=== PATIENT | male | born 1930 | race Hispanic/Latino ===

== ENCOUNTER 2016-10-06 10:37 | Inpatient (IN) | payer MEDICARE, OTHER ==
[2016-10-06 10:42] VITALS: BMI 29.5
--- NOTE | 2016-10-06 11:17 | ED PDOC ---
HPI: Hypertension/Hypotension Time Seen by Provider: 10/06/16 10:40 Chief Complaint (Nursing): Chest Pain History Per: Patient, Family History/Exam Limitations: no limitations Onset/Duration Of Symptoms: Unknown Associated Symptoms: denies: Chest Pain Quality Of Symptoms: denies: Rapid Heart Rate Severity: None Exacerbating Factor(s): Pos: None Additional Complaint(s): Patient is a 85 year old male presents to ED with daughter for rapid heart beat. As per daughter, visiting nurse came today and found heart beat to be in the 140's. Patient denies any chest pain, palpations, SOB or nausea. States he has no history of cardiac disease, only notes HTN with chronic foot swelling. Past Medical History Reviewed: Historical Data, Nursing Documentation, Vital Signs Vital Signs: Last Vital Signs Temp 98 F 10/06/16 10:41 Pulse 165 H 10/06/16 11:02 Resp BP 159/103 H 10/06/16 10:41 Pulse Ox 97 10/06/16 10:41 - Medical History PMH: Fractures, HTN - Surgical History Surgical History: No Surg Hx - Family History Family History: States: No Known Family Hx - Living Arrangements Living Arrangements: With Family - Social History Current smoker - smoking cessation education provided: No Alcohol: None Drugs: Denies - Home Medications Home Medications: Ambulatory Orders Medication Instructions Recorded Allopurinol [Zyloprim] 100 mg PO DAILY 10/06/16 Enalapril Maleate [Vasotec] 5 mg PO DAILY 10/06/16 Furosemide [Lasix] 40 mg PO DAILY 10/06/16 - Allergies Allergies/Adverse Reactions: Allergies Allergy/AdvReac Type Severity Reaction Status Date / Time No Known Allergies Allergy Verified 10/06/16 10:58 Review of Systems ROS Statement: Except As Marked, All Systems Reviewed And Found Negative Constitutional: Negative for: Fever, Chills Cardiovascular: Negative for: Chest Pain, Palpitations, Light Headedness Respiratory: Negative for: Shortness of Breath Gastrointestinal: Negative for: Nausea, Vomiting Physical Exam - Reviewed Nursing Documentation Reviewed: Yes Vital Signs Reviewed: Yes - Physical Exam Appears: Positive for: Non-toxic, No Acute Distress Skin: Positive for: Normal Color, Warm Eye Exam: Positive for: Normal appearance Neck: Positive for: Normal, Painless ROM Cardiovascular/Chest: Positive for: Chest Non Tender, Tachycardia, Irregularly Irregular. Negative for: Murmur Respiratory: Positive for: Normal Breath Sounds. Negative for: Respiratory Distress Gastrointestinal/Abdominal: Positive for: Normal Exam. Negative for: Tenderness Back: Positive for: Normal Inspection Extremity: Positive for: Normal ROM, Swelling (BLE) Neurologic/Psych: Positive for: Alert, Oriented. Negative for: Motor/Sensory Deficits - Laboratory Results Result Diagrams: 10/06/16 12:01 10/06/16 12:01 - ECG ECG: Positive for: Interpreted By Me ECG Rhythm: Positive for: Atrial Fibrillation Interpretation Of Abn EKG: (+) RVR Rate: 161 O2 Sat by Pulse Oximetry: 97 (RA) Pulse Ox Interpretation: Normal Medical Decision Making Medical Decision Making: Time: 1110 Initial impression: New onset AFib, rule out MS and CHF Initial plan: -- BNP -- CMP -- Troponin -- CBC -- CXR -- Cardizem IVP -- Cardiology Consult 14:40 Patient admit to the hospital with cardiology consult as needed for initial onset of atrial fibrillation. 14:45 Dr. Huerta of medical services accepted patient in admission. Provider plans on calling Dr. Santana for a cardiology consult. Dr huerta requested that echocardiogram be ordered 16:[address] Santana a second time for a followup cardiology consult. 17:[address] Santana who advised 0.5 mg of Digoxin and 95 mg of Lovenox. ordered for pt. Scribe Attestation: Documented by Selina Guerin and Broderick Randall, acting as a scribe for Patrica Casanoav MD. Scribe Attestation: All medical record entries made by the Scribe were at my direction and personally dictated by me. I have reviewed the chart and agree that the record accurately reflects my personal performance of the history, physical exam, medical decision making, and the department course for this patient. I have also personally directed, reviewed, and agree with the discharge instructions and disposition. Disposition - Clinical Impression Clinical Impression: Atrial fibrillation, rapid - Patient ED Disposition Is Patient to be Admitted: No Counseled Patient/Family Regarding: Studies Performed, Diagnosis - Disposition Disposition Time: 12:20 Condition: STABLE
--- NOTE | 2016-10-06 12:11 | RAD ---
HISTORY: Atrial fibrillation. COMPARISON: 03/04/2011. TECHNIQUE: Chest PA and lateral FINDINGS: LUNGS: Hyperinflation, manifestations of COPD. No active pulmonary disease. PLEURA: No significant pleural effusion identified. No pneumothorax apparent. CARDIOVASCULAR: Cardiomegaly. No evidence of acute, significant cardiovascular disease. OSSEOUS STRUCTURES: No significant abnormalities. VISUALIZED UPPER ABDOMEN: Normal. OTHER FINDINGS: None. IMPRESSION: No active disease. No significant interval change compared to the prior examination(s).
[2016-10-06 12:23] LABS: BASO # 0.1 K/uL (0.0-0.2); EOS # 0.1 K/uL (0.0-0.7); EOS % 1.2 % (0.0-4.0); HEMATOCRIT 43.7 % (35.0-51.0); LYMPH # 1.6 K/uL (1.0-4.3); LYMPH % 16.4 % (20.0-40.0); MEAN CELL VOLUME 90.9 fl (80.0-94.0); MEAN CORPUSCULAR HEMOGLOBIN 30.2 pg (27.0-31.0); MEAN CORPUSCULAR HGB CONC 33.2 g/dL (33.0-37.0); MEAN PLATELET VOLUME 9.7 fl (7.2-11.7); MONO # 0.7 K/uL (0.0-0.8); MONO % 7.2 % (0.0-10.0); NEUT # 7.5 K/uL (1.8-7.0); NEUT % 74.2 % (50.0-75.0); NRBC % 0.1 % (0.0-0.0); RED CELL DISTRIBUTION WIDTH 14.3 % (11.5-14.5)
[2016-10-06 12:32] LABS: ALB/GLOB RATIO 1.1 (1.0-2.1); ALKALINE PHOSPHATASE 101 U/L (38-126); ALT/SGPT 43 U/L (21-72); AST/SGOT 32 U/L (17-59); BILIRUBIN,TOTAL 0.5 mg/dl (0.2-1.3); BLOOD UREA NITROGEN 18 mg/dl (9-20); CALCIUM 9.5 mg/dL (8.4-10.2); CARBON DIOXIDE 27 mmol/L (22-30); CHLORIDE 100 mmol/L (98-107); GFR AFRICAN-AMERICAN > 60; GLUCOSE,RANDOM 129 mg/dL (75-110); POTASSIUM 4.2 MMOL/L (3.6-5.0); SODIUM 140 mmol/l (132-148); TOTAL PROTEIN 7.7 G/DL (6.3-8.2)
[2016-10-06] MEDS ORDERED: Digoxin 500 mcg/2ml (0.5 mg/2ml) Inj IVP ONE (17:04)
[2016-10-06] MEDS ORDERED: Enoxaparin 100 mg Syringe SC STA (17:05)
[2016-10-06] MEDS ORDERED: Digoxin 500 mcg/2ml (0.5 mg/2ml) Inj ONE (17:07)
[2016-10-06 21:55] LABS: PARTIAL THROMBOPLASTIN TIME 29.2 SECONDS (23.3-32.5)
[2016-10-07] MEDS: Enoxaparin 100 mg Syringe SC SCH ×2 (09:00→21:50)
--- NOTE | 2016-10-07 15:05 | CON ---
DATE: 10/07/2016 He is hospitalized after being sent to the Emergency Room for rapid heartbeat detected by a visiting nurse who came to examine him. At home, the patient is mostly bed and chair bound because of severe osteoarthritis of both knees and has had chronic pedal edema, probably related to prolonged immobility. He gives history of having been on antihypertensive medications and has taken allopurinol for gouty arthritis over a number of years. He is not a smoker. Denies any history of diabetes. Had never suffered a myocardial infarction and denies prior palpitations; indicates that, for the last couple of weeks, he has been uneasy while lying down and has said so to his daughter. Denies actual chest pain and denies actual orthopnea. PHYSICAL EXAMINATION: GENERAL: Shows an elderly man who is now able to lie virtually flat and breathe comfortably at approximately 16 breaths per minute. VITAL SIGNS: He has a heart rate of 110 beats per minute, irregularly irregular and a blood pressure of 126/74 mmHg. NECK: His jugular venous pressure was not elevated. EXTREMITIES: There was pitting edema over both lower extremities which appeared to be chronic in nature with only partial pitting. There was no painful joint at the first metatarsophalangeal joint. Movements of his toes were quite pain free. Pedal pulses could not be palpated. HEART: The first and second heart sounds were distant, but normal. There was a brief apical systolic murmur. No S3 gallop. LUNGS: There were very few basilar rales. ABDOMEN: Soft. Liver and spleen were not palpable. His electrocardiogram showed atrial fibrillation with rapid heart rate. Echocardiogram done today shows a normal-sized left ventricle with preserved left ventricular systolic function, evidence of mitral regurgitation with mild pulmonary hypertension. The pulmonary artery systolic pressure was in the range of 35-36 mmHg. LABORATORY DATA: Noted. IMPRESSION: At this time is atrial fibrillation, newly discovered with preserved left ventricular systolic function with a dilated left atrium indicative of depressed left ventricular compliance; congestive heart failure which is left ventricular diastolic and chronic with stasis dermatitis and chronic pedal edema related to prolonged erect immobility, history of gout. The patient has been started on beta blockade for rate control. He will require Xarelto or Pradaxa for chronic oral anticoagulation. In the meantime, he is on Lovenox at this point. I will follow the patient with you. Wayne Santana MD cc: 23 TT: 10/07/2016 12:19:17 Confirmation # [id number] Dictation # [id number] MTDD
--- NOTE | 2016-10-07 15:05 | CARD ---
APPROVED REPORT EXAM: Two-dimensional and M-mode echocardiogram with Doppler and color Doppler. Other Information Quality : GoodRhythm : Atrial Fibrillation INDICATION Atrial Fibrillation Congestive Heart Failure 2D DIMENSIONS IVSd1.35 (0.7-1.1cm)LVDd3.59 (3.9-5.9cm) LVOT Diameter2.33 (1.8-2.4cm)PWd1.13 (0.7-1.1cm) IVSs1.41 (0.8-1.2cm)LVDs2.17 (2.5-4.0cm) FS (%) 39.4 %PWs1.64 (0.8-1.2cm) LVEF (%)55.0 (>50%) M-Mode DIMENSIONS Left Atrium (MM)5.74 (2.5-4.0cm)IVSd0.99 (0.7-1.1cm) Aortic Root3.64 (2.2-3.7cm)LVDd4.30 (4.0-5.6cm) Aortic Cusp Exc.1.54 (1.5-2.0cm)PWd1.21 (0.7-1.1cm) IVSs1.84 cmFS (%) 34 % LVDs2.83 (2.0-3.8cm)PWs1.29 cm Mitral Valve E/A ratio0.0 TDI E/Lateral E'0.0E/Medial E'0.0 Tricuspid Valve TR Peak [id number] [id number] Peak Gr.27mmHg [id number] LEFT VENTRICLE The left ventricle is normal size. There is mild concentric left ventricular hypertrophy. The left ventricular function is normal. The left ventricular ejection fraction is within the normal range. There is normal LV segmental wall motion. patient is in A Fib RIGHT VENTRICLE The right ventricle is mildly dilated. There is normal right ventricular wall thickness. RV Systolic function is mildly reduced. ATRIA The left atrium is severely dilated. The right atrium is mildly dilated. AORTIC VALVE The aortic valve is not well visualized. No aortic regurgitation is present. There is no aortic valvular stenosis. MITRAL VALVE The mitral valve is not well visualized. There is no mitral valve stenosis. There is no mitral valve regurgitation noted. TRICUSPID VALVE The tricuspid valve is normal in structure There is mild pulmonary hypertension. PULMONIC VALVE The pulmonary valve is normal in structure and function. There is no pulmonic valvular regurgitation. GREAT VESSELS The aortic root is normal in size. The IVC is normal in size and collapses >50% with inspiration. PERICARDIAL EFFUSION The pericardium appears normal. <Conclusion> The left ventricle is normal size. There is mild concentric left ventricular hypertrophy. The left ventricular function is normal. The left ventricular ejection fraction is within the normal range. There is normal LV segmental wall motion. The right ventricle is mildly dilated. RV Systolic function is mildly reduced. There is mild pulmonary hypertension.
--- NOTE | 2016-10-07 20:12 | CP.PCM.HP ---
History of Present Illness - History of Present Illness History of Present Illness: CC: Rapid HR. 85 y/o M, brought to ER [facility] after found by visiting nurse with rapid HR in the 140's, no associated to CP, onset DOA with no relief. Worsening symptom: New onset of A Fib on EKG, severe R-L knee O/A, increased legs edema R>L. Aggravated Factor: Pt is Most of the time bed and chair bound 2nd to knees O/A. Pt denied: Chest pain, SOB, LOC, numbness, headache, n/v/d, abdominal pain, sick contact, recent travel. PMHx: HTN, CHF acute on chronic diastolic, O/A R-L knee, chronic stasis dermatitis, chronic Legs edema, Hemorrhoids. CXR: No active disease. Present on Admission - Present on Admission Any Indicators Present on Admission: No Review of Systems - Constitutional Constitutional: Other (negative) - EENT Eyes: Other (negative) Ears: Other (negative ) Nose/Mouth/Throat: Other (negative) - Cardiovascular Cardiovascular: Irregular Heart Rhythm, Leg Edema, Rapid Heart Rate - Respiratory Respiratory: Other (negative) - Gastrointestinal Gastrointestinal: Loose Stools (negative) - Genitourinary Genitourinary: Other (negative) - Musculoskeletal Musculoskeletal: Arthralgias, Other (knees pain) - Integumentary Integumentary: Swelling (legs) - Neurological Neurological: Other (negative) - Psychiatric Psychiatric: Other (negative) - Endocrine Endocrine: Other (negative) - Hematologic/Lymphatic Hematologic: Other (negative) Past Patient History - Infectious Disease Hx of Infectious Diseases: None - Past Medical History & Family History Pertinent Family History: Unknown. - Past Social History Smoking Status: Former Smoker Alcohol: Other (Hx alcohol abuse.) Drugs: Denies Home Situation {Lives}: With Family - CARDIAC Hx Cardiac Disorders: Yes Hx Congestive Heart Failure: Yes Hx Hypertension: Yes - PULMONARY Hx Respiratory Disorders: No - NEUROLOGICAL Hx Neurological Disorder: No - HEENT Hx HEENT Problems: No - RENAL Hx Chronic Kidney Disease: No - ENDOCRINE/METABOLIC Hx Endocrine Disorders: No - HEMATOLOGICAL/ONCOLOGICAL Hx Blood Disorders: No - INTEGUMENTARY Hx Dermatological Problems: Yes - MUSCULOSKELETAL/RHEUMATOLOGICAL Hx Musculoskeletal Disorders: Yes Hx Falls: No Hx Fractures: Yes Hx Osteoarthritis: Yes (knees) - GASTROINTESTINAL Hx Gastrointestinal Disorders: Yes Hx Hemorrhoids: Yes - GENITOURINARY/GYNECOLOGICAL Hx Genitourinary Disorders: No - PSYCHIATRIC Hx Psychophysiologic Disorder: No Hx Substance Use: No - SURGICAL HISTORY Hx Surgeries: Yes Other/Comment: cyst removal, hemorrhoidectomy - ANESTHESIA Hx Anesthesia: Yes Hx Anesthesia Reactions: No Meds Allergies/Adverse Reactions: Allergies Allergy/AdvReac Type Severity Reaction Status Date / Time No Known Allergies Allergy Verified 10/06/16 10:58 Physical Exam - Constitutional Appears: No Acute Distress - Head Exam Head Exam: NORMAL INSPECTION - Eye Exam Eye Exam: PERRL - ENT Exam ENT Exam: Normal Oropharynx - Neck Exam Neck exam: Positive for: Normal Inspection - Respiratory Exam Respiratory Exam: Decreased Breath Sounds (at bases), Rales (few at bases) - Cardiovascular Exam Cardiovascular Exam: Irregular Rhythm, Systolic Murmur (1/6 Apix) - GI/Abdominal Exam GI & Abdominal Exam: Normal Bowel Sounds, Soft - Extremities Exam Additional comments: Legs edema R>L , chronic venous stasis skin changes. - Back Exam Back exam: NORMAL INSPECTION - Neurological Exam Neurological exam: Alert, Oriented x3 Additional comments: No focal motor sensory deficit. - Psychiatric Exam Psychiatric exam: Normal Mood - Skin Skin Exam: Warm Additional comments: Chronic stasis venous dermatitis lower extremities. Results - Vital Signs Recent Vital Signs: Last Vital Signs Temp 98.3 F 10/07/16 19:49 Pulse 71 10/07/16 19:49 Resp 20 10/07/16 19:49 BP 109/70 10/07/16 19:49 Pulse Ox 95 10/07/16 19:49 reviewed J.P. - Labs Result Diagrams: 10/06/16 12:01 10/06/16 12:01 Labs: Laboratory Results - last 24 hr 10/06/16 10/06/16 21:27 21:27 PT 11.3 H INR 1.09 H APTT 29.2 Troponin I 0.0380 reviewed J.P. - EKG Data EKG comments: reviewed J.P. - Imaging and Cardiology Chest x-ray Status: Report reviewed by me (Aspen) Assessment & Plan (1) New onset atrial fibrillation Status: Acute Priority: High (2) Diastolic CHF, acute on chronic Status: Acute Priority: High (3) HTN (hypertension) Status: Acute - Assessment and Plan (Free Text) Plan: Cardizen, Lasix, Lovenox and rest of Tx, Cardiac consult appreciated. f/u Echo. PT,OT eval. - Date & Time Date: 10/07/16 Time: 10:30
--- NOTE | 2016-10-08 09:11 | CP.PCM.PN ---
Subjective - Date & Time of Evaluation Date of Evaluation: 10/08/16 Time of Evaluation: 09:00 - Subjective Subjective: Breathes much better having diuresed and with slower R A Fib at 80 BPM BP 124/76 mm Hg No rales, no gallop Evidence of VT Rt popliteal vein (Probably due to prolonged immobility) Will start on Xarelto (For A Fib+DVT) May be allowed to return home on present Rx Objective - Vital Signs/Intake and Output Vital Signs (last 24 hours): Temp Pulse Resp BP Pulse Ox 98.5 F 96 H 20 113/71 96 10/08/16 07:36 10/08/16 09:03 10/08/16 07:36 10/08/16 09:03 10/08/16 07:36 Intake and Output: 10/08/16 10/08/16 06:59 18:59 Output Total 500 Balance -500 - Medications Medications: Current Medications Allopurinol (Zyloprim) 100 mg PO DAILY [facility] Last Admin: 10/08/16 09:04 Dose: 100 mg Enalapril Maleate (Vasotec) 5 mg PO DAILY [facility] Last Admin: 10/08/16 09:04 Dose: 5 mg Furosemide (Lasix) 40 mg PO DAILY [facility] Metoprolol Tartrate (Lopressor) 50 mg PO BID [facility] Last Admin: 10/08/16 09:03 Dose: 50 mg Rivaroxaban (Xarelto) 20 mg PO QD5 [facility] PRN Reason: Protocol - Labs Labs: PT 11.3 SECONDS (9.6-11.2) H 10/06/16 21:27 INR 1.09 (0.92-1.08) H 10/06/16 21:27 APTT 29.2 SECONDS (23.3-32.5) 10/06/16 21:27
--- NOTE | 2016-10-08 09:41 | IP.NPCORE ---
Heart Failure Core Measure - Heart Failure Ejection Fraction: 40 % or Greater MIAH Inhibitor Prescribed: Yes Beta-Ezio Prescribed: Metoprolol Succinate AnticoagulationTherapy for Atrial Fibrillation/Atrialflutter: Yes - Follow up Will be discharged to: Home Follow Up Date (must be within 7 days from discharge): 10/15/16 Follow Up Time: 09:00
[2016-10-08 12:20] LABS: BLOOD UREA NITROGEN 17 mg/dl (9-20); CARBON DIOXIDE 29 mmol/L (22-30); CHLORIDE 100 mmol/L (98-107); GFR AFRICAN-AMERICAN > 60; GLUCOSE,RANDOM 166 mg/dL (75-110); POTASSIUM 3.6 MMOL/L (3.6-5.0); SODIUM 141 mmol/l (132-148)
[2016-10-08 12:22] LABS: ALB/GLOB RATIO 1.3 (1.0-2.1); ALT/SGPT 38 U/L (21-72); AST/SGOT 28 U/L (17-59); BILIRUBIN,TOTAL 0.8 mg/dl (0.2-1.3); CALCIUM 8.9 mg/dL (8.4-10.2); TOTAL PROTEIN 6.8 G/DL (6.3-8.2); URIC ACID 11.6 mg/Dl (3.5-8.5)
[2016-10-08 12:23] LABS: ALKALINE PHOSPHATASE 85 U/L (38-126); T4 6.47 ug/dl (5.5-11.0)
[2016-10-08 12:25] LABS: HEMATOCRIT 40.9 % (35.0-51.0); MEAN CELL VOLUME 90.3 fl (80.0-94.0); MEAN CORPUSCULAR HEMOGLOBIN 30.1 pg (27.0-31.0); MEAN CORPUSCULAR HGB CONC 33.4 g/dL (33.0-37.0); RED CELL DISTRIBUTION WIDTH 14.5 % (11.5-14.5); WHITE BLOOD COUNT 8.4 K/uL (4.8-10.8)
--- NOTE | 2016-10-08 12:55 | US ---
PROCEDURE: Bilateral lower extremity venous duplex Doppler. HISTORY: COMPARISON: None available. TECHNIQUE: Bilateral common femoral, superficial femoral, popliteal and posterior tibial veins were evaluated. Flow was assessed with color Doppler, compressibility, assessment of phasic flow and augmentation response. FINDINGS: COMMON FEMORAL VEIN: Right CFV: Unremarkable. Left CFV: Unremarkable. SUPERFICIAL FEMORAL VEIN: Right SFV: Unremarkable. Left SFV: Unremarkable. POPLITEAL VEIN: Right Popliteal: Not fully compressible. Intraluminal thrombus identified. Consistent with deep venous thrombosis. Left Popliteal: Unremarkable. POSTERIOR TIBIAL VEIN: Right PTV: Unremarkable. Left PTV: Unremarkable. OTHER FINDINGS: Bilateral popliteal cysts. Within the popliteal cysts bilaterally, there are multiple calcifications identified. This is of uncertain significance. IMPRESSION: Right popliteal venous thrombosis, isolated. No evidence of left lower extremity deep venous thrombosis. Bilateral popliteal cyst containing multiple calcifications bilaterally, of uncertain significance.
--- NOTE | 2016-10-08 14:18 | CP.PCM.PN ---
Subjective - Date & Time of Evaluation Date of Evaluation: 10/08/16 Time of Evaluation: 10:00 - Subjective Subjective: F/U New onset A Fib Pt with no SOB, no orthopnea, no chest pain, breathing well. Objective - Vital Signs/Intake and Output Vital Signs (last 24 hours): Temp Pulse Resp BP Pulse Ox 98.2 F 102 H 20 126/62 95 10/08/16 12:00 10/08/16 13:11 10/08/16 12:00 10/08/16 12:00 10/08/16 13:11 Intake and Output: 10/08/16 10/08/16 06:59 18:59 Output Total 500 Balance -500 - Medications Medications: Current Medications Allopurinol (Zyloprim) 100 mg PO DAILY [facility] Last Admin: 10/08/16 09:04 Dose: 100 mg Enalapril Maleate (Vasotec) 5 mg PO DAILY [facility] Last Admin: 10/08/16 09:04 Dose: 5 mg Furosemide (Lasix) 40 mg PO DAILY [facility] Metoprolol Tartrate (Lopressor) 50 mg PO BID [facility] Last Admin: 10/08/16 09:03 Dose: 50 mg Rivaroxaban (Xarelto) 20 mg PO QD5 [facility] PRN Reason: Protocol - Labs Labs: 10/07/16 04:00 10/07/16 04:00 PT 11.3 SECONDS (9.6-11.2) H 10/06/16 21:27 INR 1.09 (0.92-1.08) H 10/06/16 21:27 APTT 29.2 SECONDS (23.3-32.5) 10/06/16 21:27 - Constitutional Appears: No Acute Distress - Head Exam Head Exam: NORMAL INSPECTION - Eye Exam Eye Exam: PERRL - ENT Exam ENT Exam: Normal Oropharynx - Neck Exam Neck Exam: Normal Inspection - Respiratory Exam Respiratory Exam: Decreased Breath Sounds (at bases) - Cardiovascular Exam Cardiovascular Exam: Irregular Rhythm, Murmur (systolic 1/6 Apix.) - GI/Abdominal Exam GI & Abdominal Exam: Soft, Normal Bowel Sounds - Extremities Exam Additional comments: Legs edema R > L leg extending to b/l foot, chronic venous stasis skin changes. - Back Exam Back Exam: NORMAL INSPECTION - Neurological Exam Neurological Exam: Alert, Oriented x3 Additional comments: No focal motor sensory deficit. - Psychiatric Exam Psychiatric exam: Normal Mood - Skin Skin Exam: Warm (Chronic stasis venous dermatitis L/E) Assessment and Plan (1) New onset atrial fibrillation Status: Acute (2) Diastolic CHF, acute on chronic Status: Acute (3) HTN (hypertension) Status: Acute - Assessment and Plan (Free Text) Plan: Increased HR up to 140 with PT attempting to get out of bed , Pt returned back to bed and HR went back to normal, Pt was seen by Cardiology recommended to stay in the hospital, continue current Vasotec, Lopressor, Lasix and rest of Tx , monitor HR.
--- NOTE | 2016-10-09 15:05 | CP.PCM.PN ---
Subjective - Date & Time of Evaluation Date of Evaluation: 10/09/16 Time of Evaluation: 13:00 - Subjective Subjective: F/U New Onset A Fib. Breathing better, no SOB at rest, attempt to seating develop SOB. Objective - Vital Signs/Intake and Output Vital Signs (last 24 hours): Temp Pulse Resp BP Pulse Ox 97.4 F L 118 H 18 108/57 L 97 10/09/16 12:42 10/09/16 13:28 10/09/16 12:42 10/09/16 13:28 10/09/16 12:42 Intake and Output: 10/09/16 10/09/16 06:59 18:59 Intake Total 200 Output Total 600 Balance -400 - Medications Medications: Current Medications Allopurinol (Zyloprim) 100 mg PO DAILY [facility] Last Admin: 10/09/16 09:23 Dose: 100 mg Enalapril Maleate (Vasotec) 5 mg PO DAILY [facility] Last Admin: 10/09/16 09:23 Dose: 5 mg Furosemide (Lasix) 40 mg PO DAILY [facility] Last Admin: 10/09/16 09:22 Dose: 40 mg Lactulose (Enulose) 20 gm PO DAILY [facility]N PRN Reason: Constipation Last Admin: 10/08/16 17:55 Dose: 20 gm Metoprolol Tartrate (Lopressor) 100 mg PO Q12 [facility] Rivaroxaban (Xarelto) 20 mg PO QD5 [facility] PRN Reason: Protocol Last Admin: 10/08/16 17:56 Dose: 20 mg - Labs Labs: 10/07/16 04:00 10/07/16 04:00 PT 11.3 SECONDS (9.6-11.2) H 10/06/16 21:27 INR 1.09 (0.92-1.08) H 10/06/16 21:27 APTT 29.2 SECONDS (23.3-32.5) 10/06/16 21:27 - Constitutional Appears: No Acute Distress - Head Exam Head Exam: NORMAL INSPECTION - Eye Exam Eye Exam: PERRL - ENT Exam ENT Exam: Normal Oropharynx - Neck Exam Neck Exam: Normal Inspection - Respiratory Exam Respiratory Exam: Decreased Breath Sounds (at bases), Rales (few at bases) - Cardiovascular Exam Cardiovascular Exam: Irregular Rhythm, Murmur (1/6 Apix) - GI/Abdominal Exam GI & Abdominal Exam: Soft, Normal Bowel Sounds - Extremities Exam Additional comments: Legs edema R > L decreased, chronic venous stasis skin changes. - Back Exam Back Exam: NORMAL INSPECTION - Neurological Exam Neurological Exam: Alert, Oriented x3 Additional comments: No focal motor sensory deficit. - Psychiatric Exam Psychiatric exam: Normal Mood - Skin Skin Exam: Warm (Chronic venous stasis dermatitis L/E) Assessment and Plan (1) New onset atrial fibrillation Status: Acute (2) Diastolic CHF, acute on chronic Status: Acute (3) HTN (hypertension) Status: Acute - Assessment and Plan (Free Text) Plan: Telemetry A Fib at regular rate, increased HR with Physical effort, continue current Tx and PT.
--- NOTE | 2016-10-10 10:36 | CP.PCM.PN ---
Subjective - Date & Time of Evaluation Date of Evaluation: 10/10/16 Time of Evaluation: 10:00 - Subjective Subjective: pt remains in AF HR this AM...110 BPM Metoprolol was increased yesterday to 100mg BID pt is asymptomatic Objective - Vital Signs/Intake and Output Vital Signs (last 24 hours): Temp Pulse Resp BP Pulse Ox 97.6 F 108 H 20 133/90 97 10/10/16 07:54 10/10/16 08:56 10/10/16 07:54 10/10/16 08:56 10/10/16 07:54 Intake and Output: 10/10/16 10/10/16 06:59 18:59 Intake Total 240 Balance 240 - Medications Medications: Current Medications Acetaminophen (Tylenol 325mg Tab) 650 mg PO Q4 PRN PRN Reason: Pain, moderate (4-7) Allopurinol (Zyloprim) 100 mg PO DAILY [facility] Last Admin: 10/10/16 08:56 Dose: 100 mg Colchicine (Colocrys) 0.6 mg PO BID [facility] Enalapril Maleate (Vasotec) 5 mg PO DAILY [facility] Last Admin: 10/10/16 08:56 Dose: 5 mg Furosemide (Lasix) 40 mg PO DAILY [facility] Last Admin: 10/10/16 08:55 Dose: 40 mg Lactulose (Enulose) 20 gm PO DAILY PRN PRN Reason: Constipation Last Admin: 10/08/16 17:55 Dose: 20 gm Metoprolol Tartrate (Lopressor) 100 mg PO Q12 [facility] Last Admin: 10/10/16 08:56 Dose: 100 mg Rivaroxaban (Xarelto) 20 mg PO QD5 [facility] PRN Reason: Protocol Last Admin: 10/09/16 17:34 Dose: 20 mg - Labs Labs: 10/07/16 04:00 10/07/16 04:00 PT 11.3 SECONDS (9.6-11.2) H 10/06/16 21:27 INR 1.09 (0.92-1.08) H 10/06/16 21:27 APTT 29.2 SECONDS (23.3-32.5) 10/06/16 21:27
[2016-10-10 10:41] LABS: HEMATOCRIT 41.6 % (35.0-51.0); MEAN CELL VOLUME 91.2 fl (80.0-94.0); MEAN CORPUSCULAR HGB CONC 32.9 g/dL (33.0-37.0); RED CELL DISTRIBUTION WIDTH 14.4 % (11.5-14.5); WHITE BLOOD COUNT 9.9 K/uL (4.8-10.8)
[2016-10-10 10:47] LABS: BLOOD UREA NITROGEN 22 mg/dl (9-20); CALCIUM 8.7 mg/dL (8.4-10.2); CARBON DIOXIDE 29 mmol/L (22-30); CHLORIDE 102 mmol/L (98-107); GFR AFRICAN-AMERICAN > 60; GLUCOSE,RANDOM 180 mg/dL (75-110); POTASSIUM 3.7 MMOL/L (3.6-5.0); SODIUM 142 mmol/l (132-148); URIC ACID 9.6 mg/Dl (3.5-8.5)
--- NOTE | 2016-10-10 14:28 | RAD ---
PROCEDURE: Right Hand Radiographs. HISTORY: swollen right first finger COMPARISON: None available. FINDINGS: BONES: Osseous demineralization limits evaluation for acute fracture lines. No acute displaced fracture. Severe degenerative changes most prominently involving the 1st digit with joint space narrowing and osteophyte formation. JOINTS: No dislocation. SOFT TISSUES: Marked soft tissue swelling, greatest involving 1st and 2nd digits. No evidence of radiopaque foreign body. OTHER FINDINGS: None. IMPRESSION: Extensive degenerative changes most prominently involving the 1st digit. Osseous demineralization limits evaluation. Marked soft tissue swelling, greatest involving the 1st and 2nd digits. No acute displaced fracture or dislocation identified. If symptoms persist, or if there is continued clinical concern, x-ray follow-up in 7-10 days should be considered.
--- NOTE | 2016-10-10 16:05 | CP.PCM.PN ---
Subjective - Date & Time of Evaluation Date of Evaluation: 10/10/16 Time of Evaluation: 12:00 - Subjective Subjective: F/U A Fib. No A/D, Breathing better, R hand with redness, swelling 1st and 2nd digits, no c /o of pain. Objective - Vital Signs/Intake and Output Vital Signs (last 24 hours): Temp Pulse Resp BP Pulse Ox 97.4 F L 95 H 18 124/83 98 10/10/16 15:48 10/10/16 15:48 10/10/16 15:48 10/10/16 15:48 10/10/16 15:48 Intake and Output: 10/10/16 10/10/16 06:59 18:59 Intake Total 240 Balance 240 - Medications Medications: Current Medications Acetaminophen (Tylenol 325mg Tab) 650 mg PO Q4 PRN PRN Reason: Pain, moderate (4-7) Last Admin: 10/10/16 12:05 Dose: 650 mg Allopurinol (Zyloprim) 100 mg PO DAILY [facility] Last Admin: 10/10/16 08:56 Dose: 100 mg Colchicine (Colocrys) 0.6 mg PO BID [facility] Last Admin: 10/10/16 12:07 Dose: 0.6 mg Enalapril Maleate (Vasotec) 5 mg PO DAILY [facility] Last Admin: 10/10/16 08:56 Dose: 5 mg Furosemide (Lasix) 40 mg PO DAILY [facility] Last Admin: 10/10/16 08:55 Dose: 40 mg Methylprednisolone 40 mg/ (Sodium Chloride) 50 mls @ 100 mls/hr IVPB ONCE ONE Stop: 10/10/16 17:29 Lactulose (Enulose) 20 gm PO DAILY PRN PRN Reason: Constipation Last Admin: 10/08/16 17:55 Dose: 20 gm Metoprolol Tartrate (Lopressor) 100 mg PO Q12 [facility] Last Admin: 10/10/16 08:56 Dose: 100 mg Rivaroxaban (Xarelto) 20 mg PO QD5 [facility] PRN Reason: Protocol Last Admin: 10/09/16 17:34 Dose: 20 mg - Labs Labs: 10/10/16 10:10 10/10/16 10:10 PT 11.3 SECONDS (9.6-11.2) H 10/06/16 21:27 INR 1.09 (0.92-1.08) H 10/06/16 21:27 APTT 29.2 SECONDS (23.3-32.5) 10/06/16 21:27 - Constitutional Appears: No Acute Distress - Head Exam Head Exam: NORMAL INSPECTION - Eye Exam Eye Exam: PERRL - ENT Exam ENT Exam: Normal Oropharynx - Neck Exam Neck Exam: Normal Inspection - Respiratory Exam Respiratory Exam: Decreased Breath Sounds (at basaes), Rales (few at bases) - Cardiovascular Exam Cardiovascular Exam: Irregular Rhythm, Murmur (1/6 Apix) - GI/Abdominal Exam GI & Abdominal Exam: Soft, Normal Bowel Sounds - Extremities Exam Additional comments: R hand swelling and redness on 1st - 2nd digits. Legs edema R > L, chronic venous stasis skin changes. - Back Exam Back Exam: NORMAL INSPECTION - Neurological Exam Neurological Exam: Alert, Oriented x3 Additional comments: No focal motor sensory deficit. - Psychiatric Exam Psychiatric exam: Normal Mood - Skin Skin Exam: Warm (Chronic stasis venous dermatitis lower extremities.) Assessment and Plan (1) New onset atrial fibrillation Status: Acute (2) Diastolic CHF, acute on chronic Status: Acute (3) HTN (hypertension) Status: Chronic (4) Gout Status: Acute - Assessment and Plan (Free Text) Plan: Rt hand X-Ray, Colchisine, Solumedrol, continue rest of Tx.
[2016-10-10] MEDS ORDERED: methylPREDNISolone 40 MG in Sodium Chloride 0.9% 50 ML IVPB ONE (17:00)
--- NOTE | 2016-10-11 15:29 | CP.PCM.PN ---
Subjective - Date & Time of Evaluation Date of Evaluation: 10/11/16 Time of Evaluation: 10:50 - Subjective Subjective: F/U A Fib R hand redness and swelling decreasing, no A/D. Objective - Vital Signs/Intake and Output Vital Signs (last 24 hours): Temp Pulse Resp BP Pulse Ox 97.2 F L 104 H 18 135/73 98 10/11/16 12:00 10/11/16 12:00 10/11/16 12:00 10/11/16 12:00 10/11/16 12:00 Intake and Output: 10/11/16 10/11/16 06:59 18:59 Intake Total 200 Output Total 300 250 Balance -300 -50 - Medications Medications: Current Medications Acetaminophen (Tylenol 325mg Tab) 650 mg PO Q4 PRN PRN Reason: Pain, moderate (4-7) Last Admin: 10/10/16 12:05 Dose: 650 mg Allopurinol (Zyloprim) 100 mg PO DAILY [facility] Last Admin: 10/11/16 09:04 Dose: 100 mg Colchicine (Colocrys) 0.6 mg PO BID [facility] Last Admin: 10/11/16 09:04 Dose: 0.6 mg Enalapril Maleate (Vasotec) 5 mg PO DAILY [facility] Last Admin: 10/11/16 09:04 Dose: 5 mg Furosemide (Lasix) 40 mg PO DAILY [facility] Last Admin: 10/11/16 09:04 Dose: 40 mg Lactulose (Enulose) 20 gm PO DAILY PRN PRN Reason: Constipation Last Admin: 10/08/16 17:55 Dose: 20 gm Metoprolol Tartrate (Lopressor) 100 mg PO Q12 [facility] Last Admin: 10/11/16 09:04 Dose: 100 mg Rivaroxaban (Xarelto) 20 mg PO QD5 [facility] PRN Reason: Protocol Last Admin: 10/10/16 16:49 Dose: 20 mg - Labs Labs: 10/10/16 10:10 10/10/16 10:10 PT 11.3 SECONDS (9.6-11.2) H 10/06/16 21:27 INR 1.09 (0.92-1.08) H 10/06/16 21:27 APTT 29.2 SECONDS (23.3-32.5) 10/06/16 21:27 - Constitutional Appears: No Acute Distress - Head Exam Head Exam: NORMAL INSPECTION - Eye Exam Eye Exam: PERRL - ENT Exam ENT Exam: Normal Oropharynx - Neck Exam Neck Exam: Normal Inspection - Respiratory Exam Respiratory Exam: Decreased Breath Sounds (at bases) - Cardiovascular Exam Cardiovascular Exam: Irregular Rhythm, Murmur (1/6 Apix) - GI/Abdominal Exam GI & Abdominal Exam: Soft, Normal Bowel Sounds - Extremities Exam Additional comments: Rt hand swelling and redness 1st-2nd digits improved. Legs edema R > L, chronic venous stasis skin changes. - Back Exam Back Exam: NORMAL INSPECTION - Neurological Exam Neurological Exam: Alert, Oriented x3 Additional comments: No focal motor sensory deficit. - Psychiatric Exam Psychiatric exam: Normal Mood - Skin Skin Exam: Warm (Chronic stasis venous dermatitis lower extremities.) Assessment and Plan (1) New onset atrial fibrillation Status: Acute (2) Diastolic CHF, acute on chronic Status: Acute (3) HTN (hypertension) Status: Chronic (4) Gout Status: Acute - Assessment and Plan (Free Text) Plan: Rt hand X-Ray No Fx. Continue Allopurinol, Colchine, Lasix, Metropolol, rest of Tx and PT.
--- NOTE | 2016-10-12 14:56 | CP.PCM.PCO ---
Assessment/Plan - Assessment/Plan Plan (Free Text): Patient with left ventricular diastolic heart failure needs hospital bed for home, remain HOB 30 degrees while at rest. - Problems Patient Problems: Problem List (Active/Current) Problem Status Onset Code Diastolic CHF, acute on chronic Acute I50.33 Gout Acute M10.9 New onset atrial fibrillation Acute I48.91 HTN (hypertension) Chronic I10
--- NOTE | 2016-10-12 15:21 | CP.PCM.PN ---
Subjective - Date & Time of Evaluation Date of Evaluation: 10/12/17 Time of Evaluation: 09:30 - Subjective Subjective: F/u A Fib No A/D, no SOB, HR increased yesterday upon getting out of bed. Objective - Vital Signs/Intake and Output Vital Signs (last 24 hours): Temp Pulse Resp BP Pulse Ox 98.1 F 121 H 18 112/73 98 10/12/16 13:06 10/12/16 13:06 10/12/16 13:06 10/12/16 13:06 10/12/16 13:06 Intake and Output: 10/12/16 10/12/16 06:59 18:59 Intake Total 200 Output Total 400 Balance -200 - Medications Medications: Current Medications Acetaminophen (Tylenol 325mg Tab) 650 mg PO Q4 PRN PRN Reason: Pain, moderate (4-7) Last Admin: 10/10/16 12:05 Dose: 650 mg Allopurinol (Zyloprim) 100 mg PO DAILY [facility] Last Admin: 10/12/16 09:21 Dose: 100 mg Colchicine (Colocrys) 0.6 mg PO BID [facility] Last Admin: 10/12/16 09:20 Dose: 0.6 mg Enalapril Maleate (Vasotec) 5 mg PO DAILY [facility] Last Admin: 10/12/16 09:20 Dose: 5 mg Furosemide (Lasix) 40 mg PO DAILY [facility] Last Admin: 10/12/16 09:20 Dose: 40 mg Lactulose (Enulose) 20 gm PO DAILY PRN PRN Reason: Constipation Last Admin: 10/08/16 17:55 Dose: 20 gm Metoprolol Tartrate (Lopressor) 100 mg PO Q12 [facility] Last Admin: 10/12/16 09:20 Dose: 100 mg Rivaroxaban (Xarelto) 20 mg PO QD5 [facility] PRN Reason: Protocol Last Admin: 10/11/16 16:08 Dose: 20 mg - Labs Labs: 10/10/16 10:10 10/10/16 10:10 PT 11.3 SECONDS (9.6-11.2) H 10/06/16 21:27 INR 1.09 (0.92-1.08) H 10/06/16 21:27 APTT 29.2 SECONDS (23.3-32.5) 10/06/16 21:27 - Constitutional Appears: No Acute Distress - Head Exam Head Exam: NORMAL INSPECTION - Eye Exam Eye Exam: PERRL - ENT Exam ENT Exam: Normal Oropharynx - Neck Exam Neck Exam: Normal Inspection - Respiratory Exam Respiratory Exam: Decreased Breath Sounds (at bases) - Cardiovascular Exam Cardiovascular Exam: Irregular Rhythm, Murmur (05/28 Apix) - GI/Abdominal Exam GI & Abdominal Exam: Soft, Normal Bowel Sounds - Extremities Exam Additional comments: R hand swelling and redness 1st and 2nd digits improved. Legs edema improved, chronic venous stasis skin changes. - Back Exam Back Exam: NORMAL INSPECTION - Neurological Exam Neurological Exam: Alert, Oriented x3 Additional comments: No focal motor sensory deficit. - Psychiatric Exam Psychiatric exam: Normal Mood - Skin Skin Exam: Warm Additional comments: Chronic stasis venous dermatitis L/E. Assessment and Plan (1) New onset atrial fibrillation Status: Acute (2) Diastolic CHF, acute on chronic Status: Acute (3) HTN (hypertension) Status: Chronic (4) Gout Status: Acute - Assessment and Plan (Free Text) Plan: Lopressor increased 100 bid, monitor HR getting out of bed today for PT.
[2016-10-13 08:02] VITALS: RESP 20
--- NOTE | 2016-10-13 09:04 | CP.PCM.PN ---
Subjective - Date & Time of Evaluation Date of Evaluation: 10/13/16 Time of Evaluation: 09:00 - Subjective Subjective: Telemetry shows persistent episodes of tachycardia (100 to 130 BPM), in spite of 100 mg of Metoprolol BP 126/80 mm Hg No overt volume over load Had an acute episode of gout requiring Colchicine Have raised dose of Metoprolol to 150 BPM BID Objective - Vital Signs/Intake and Output Vital Signs (last 24 hours): Temp Pulse Resp BP Pulse Ox 97.0 F L 99 H 20 129/78 99 10/13/16 08:01 10/13/16 08:39 10/13/16 08:01 10/13/16 08:39 10/13/16 08:01 Intake and Output: 10/13/16 10/13/16 06:59 18:59 Intake Total 150 Output Total 600 Balance -450 - Medications Medications: Current Medications Acetaminophen (Tylenol 325mg Tab) 650 mg PO Q4 PRN PRN Reason: Pain, moderate (4-7) Last Admin: 10/10/16 12:05 Dose: 650 mg Allopurinol (Zyloprim) 100 mg PO DAILY [facility] Last Admin: 10/13/16 08:40 Dose: 100 mg Colchicine (Colocrys) 0.6 mg PO BID [facility] Last Admin: 10/13/16 08:39 Dose: 0.6 mg Enalapril Maleate (Vasotec) 5 mg PO DAILY [facility] Last Admin: 10/13/16 08:40 Dose: 5 mg Furosemide (Lasix) 40 mg PO DAILY [facility] Last Admin: 10/13/16 08:39 Dose: 40 mg Lactulose (Enulose) 20 gm PO DAILY PRN PRN Reason: Constipation Last Admin: 10/08/16 17:55 Dose: 20 gm Metoprolol Tartrate (Lopressor) 150 mg PO Q12 [facility] Rivaroxaban (Xarelto) 20 mg PO QD5 [facility] PRN Reason: Protocol Last Admin: 10/12/16 16:52 Dose: 20 mg - Labs Labs: 10/10/16 10:10 10/10/16 10:10 PT 11.3 SECONDS (9.6-11.2) H 10/06/16 21:27 INR 1.09 (0.92-1.08) H 10/06/16 21:27 APTT 29.2 SECONDS (23.3-32.5) 10/06/16 21:27
[2016-10-13 12:29] VITALS: O2SAT 96
[2016-10-13 12:48] LABS: BLOOD UREA NITROGEN 30 mg/dl (9-20); CALCIUM 8.7 mg/dL (8.4-10.2); CARBON DIOXIDE 31 mmol/L (22-30); CHLORIDE 99 mmol/L (98-107); GFR AFRICAN-AMERICAN > 60; GLUCOSE,RANDOM 148 mg/dL (75-110); POTASSIUM 3.7 MMOL/L (3.6-5.0); SODIUM 142 mmol/l (132-148)
--- NOTE | 2016-10-13 14:21 | CP.PCM.PCO ---
Assessment/Plan - Assessment/Plan Assessment (Free Text): Patient seen and examined Seen by Administration Manager earlier today with increase of metoprolol to 150mg Q12H Patient ambulated with physical therapy, no chest pain no shortness of breath. Heart rate has maintained stable in the 90s. Discussed with Dr Retana, pt will be discharged to home as he has deferred tcu admission. Patient to be followed by Visiting Nurse Service, and physical therapy at home. CM made aware for transportation arrangements. - Problems Patient Problems: Problem List (Active/Current) Problem Status Onset Code Diastolic CHF, acute on chronic Acute I50.33 Gout Acute M10.9 New onset atrial fibrillation Acute I48.91 HTN (hypertension) Chronic I10
--- NOTE | 2016-10-13 14:55 | CP.PCM.PN ---
Subjective - Date & Time of Evaluation Date of Evaluation: 10/13/16 Time of Evaluation: 12:00 - Subjective Subjective: F/U A Fib. Pt having increased HR yesterday, Lopressor increased to 150 bid, PT able to walk this morning with HR controlled, no A/D, no CP, no SOB. Objective - Vital Signs/Intake and Output Vital Signs (last 24 hours): Temp Pulse Resp BP Pulse Ox 98.3 F 90 20 107/69 96 10/13/16 12:28 10/13/16 12:28 10/13/16 12:28 10/13/16 12:28 10/13/16 12:28 Intake and Output: 10/13/16 10/13/16 06:59 18:59 Intake Total 150 Output Total 600 Balance -450 - Medications Medications: Current Medications Acetaminophen (Tylenol 325mg Tab) 650 mg PO Q4 PRN PRN Reason: Pain, moderate (4-7) Last Admin: 10/10/16 12:05 Dose: 650 mg Allopurinol (Zyloprim) 100 mg PO DAILY [facility] Last Admin: 10/13/16 08:40 Dose: 100 mg Colchicine (Colocrys) 0.6 mg PO BID [facility] Last Admin: 10/13/16 08:39 Dose: 0.6 mg Enalapril Maleate (Vasotec) 5 mg PO DAILY [facility] Last Admin: 10/13/16 08:40 Dose: 5 mg Furosemide (Lasix) 40 mg PO DAILY [facility] Last Admin: 10/13/16 08:39 Dose: 40 mg Lactulose (Enulose) 20 gm PO DAILY PRN PRN Reason: Constipation Last Admin: 10/08/16 17:55 Dose: 20 gm Metoprolol Tartrate (Lopressor) 150 mg PO Q12 [facility] Last Admin: 10/13/16 09:36 Dose: Not Given Rivaroxaban (Xarelto) 20 mg PO QD5 [facility] PRN Reason: Protocol Last Admin: 10/12/16 16:52 Dose: 20 mg - Labs Labs: 10/10/16 10:10 10/13/16 12:25 PT 11.3 SECONDS (9.6-11.2) H 10/06/16 21:27 INR 1.09 (0.92-1.08) H 10/06/16 21:27 APTT 29.2 SECONDS (23.3-32.5) 10/06/16 21:27 - Constitutional Appears: No Acute Distress - Head Exam Head Exam: NORMAL INSPECTION - Eye Exam Eye Exam: PERRL - ENT Exam ENT Exam: Normal Oropharynx - Neck Exam Neck Exam: Normal Inspection - Respiratory Exam Respiratory Exam: Decreased Breath Sounds (at bases) - Cardiovascular Exam Cardiovascular Exam: Murmur (1/6 Apix) - GI/Abdominal Exam GI & Abdominal Exam: Soft, Normal Bowel Sounds - Extremities Exam Additional comments: R hand swelling and redness 1st and 2nd digits improved, legs edema improved, chronic venous stasis skin changes. - Back Exam Back Exam: NORMAL INSPECTION - Neurological Exam Neurological Exam: Alert, Oriented x3 Additional comments: No focal motor sensory deficit. Assessment and Plan (1) New onset atrial fibrillation Status: Acute (2) Diastolic CHF, acute on chronic Status: Acute (3) HTN (hypertension) Status: Chronic (4) Gout Status: Acute - Assessment and Plan (Free Text) Plan: Pt improved and stable to be discharged, f/u with Cardiology and PMD in a week.
[2016-10-13 15:39] VITALS: BP 115/83; PULSE 103; TEMP 98.2
--- NOTE | 2016-10-15 07:47 | CARD ---
APPROVED REPORT EKG Measurement Heart [id number] <Conclusion> Atrial fibrillation with rapid ventricular response Cannot rule out Inferior infarct, age undetermined Possible Anterior infarct, age undetermined Abnormal ECG
== END 2016-10-13 18:00 | disposition home health service (06) | DRG 308 ==
LOC: H.ER 10:37 → H.ERHOLD 14:40 → H.TEL 18:10
PROVIDERS: ADMIT Internal Medicine Pulmonary Disease; ATTEND Internal Medicine Pulmonary Disease
DX: I48.91 Unspecified atrial fibrillation (principal); I50.33 Acute on chronic diastolic (congestive) heart failure; I11.0 Hypertensive heart disease with heart failure; M17.0 Bilateral primary osteoarthritis of knee; I87.2 Venous insufficiency (chronic) (peripheral); Z87.891 Personal history of nicotine dependence; Z79.01 Long term (current) use of anticoagulants; M10.9 Gout, unspecified

== ENCOUNTER 2018-10-01 10:26 | Inpatient (IN) | payer MEDICARE, OTHER ==
[2018-10-01 10:26] VITALS: BMI 29.5
[2018-10-01] MEDS ORDERED: Albuterol-Ipratrop 3 mg / 0.5 (3 ml) UD IH STA (11:32)
[2018-10-01] MEDS ORDERED: Albuterol-Ipratrop 3 mg / 0.5 (3 ml) UD INH STA (11:32)
--- NOTE | 2018-10-01 11:33 | ED PDOC ---
HPI: General Adult Time Seen by Provider: 10/01/18 10:59 Chief Complaint (Nursing): Male Genitourinary Chief Complaint (Provider): Hematuria History Per: Patient, Family History/Exam Limitations: no limitations Onset/Duration Of Symptoms: Days (yesterday) Additional Complaint(s): Pt. had frequency of urination and then urgency. At night a stone or clot came out and then he has been having bloody urine. No abd pain. No back pain. For 3 weeks has had cough, mild dyspnea. White sputum. No chest pain, dyspnea, fever, headaches, palpitations, dizziness, leg pain. Has gout in the right leg and is chronically swollen. Pt. had blood clot in that leg as well. Past Medical History Reviewed: Nursing Documentation, Vital Signs Vital Signs: Last Vital Signs Temp 98.6 F 10/01/18 10:30 Pulse 86 10/01/18 10:30 Resp 20 10/01/18 10:30 BP 134/98 H 10/01/18 10:30 Pulse Ox 96 10/01/18 10:30 Primary Care Provider: Ender Yao - Medical History PMH: Arthritis, Atrial Fibrillation, CHF, Deep Vein Thrombosis, Fractures, HTN Denies: HIV, Chronic Kidney Disease Other PMH: gout - Family History Family History: States: Unknown Family Hx - Living Arrangements Living Arrangements: With Family - Home Medications Home Medications: Ambulatory Orders Medication Instructions Recorded Allopurinol [Zyloprim] 100 mg PO DAILY 10/06/16 Enalapril Maleate [Vasotec] 5 mg PO DAILY 10/06/16 Furosemide [Lasix] 40 mg PO DAILY #30 tab 10/08/16 Cholecalciferol (Vitamin D3) 1 cap PO DAILY 10/01/18 [Vitamin D3] Cyanocobalamin (Vitamin B-12) 1 lozenge PO DAILY 10/01/18 [Vitamin B-12] Metoprolol Tartrate [Lopressor] 150 mg PO TID 10/01/18 Rivaroxaban [Xarelto] 20 mg PO DAILY 10/01/18 - Allergies Allergies/Adverse Reactions: Allergies Allergy/AdvReac Type Severity Reaction Status Date / Time No Known Allergies Allergy Verified 10/01/18 11:08 Review of Systems ROS Statement: Except As Marked, All Systems Reviewed And Found Negative Respiratory: Positive for: Cough, Shortness of Breath, Sputum Genitourinary Male: Positive for: Frequency, Hematuria. Negative for: Penile Discharge, Scrotal Pain, Penile Pain Musculoskeletal: Negative for: Neck Pain, Shoulder Pain, Arm Pain, Leg Pain Physical Exam - Reviewed Nursing Documentation Reviewed: Yes Vital Signs Reviewed: Yes - Physical Exam Appears: Positive for: Uncomfortable Head Exam: Positive for: ATRAUMATIC, NORMAL INSPECTION, NORMOCEPHALIC Skin: Positive for: Normal Color, Warm, DRY Eye Exam: Positive for: EOMI, Normal appearance, PERRL ENT: Positive for: Normal ENT Inspection Neck: Positive for: Normal, Painless ROM, Supple Cardiovascular/Chest: Positive for: Tachycardia, Irregularly Irregular Respiratory: Positive for: Decreased Breath Sounds, Other (trace wheezes b/l). Negative for: Accessory Muscle Use, Respiratory Distress Pulses-Dorsalis Pedis (R): 1+ Gastrointestinal/Abdominal: Positive for: Normal Exam, Soft. Negative for: Tenderness Back: Positive for: Normal Inspection. Negative for: L CVA Tenderness, R CVA Tenderness Extremity: Positive for: Normal ROM, Other (R leg with edema and chronic type swelling like elephantitis.). Negative for: Tenderness, Calf Tenderness Neurological/Psych: Positive for: Awake, Alert, Normal Tone - Laboratory Results Result Diagrams: 10/01/18 12:30 10/01/18 12:30 Interpretation Of Abn Labs: 3730 probnp; lactate 2.2 - ECG ECG: Positive for: Interpreted By Me, Viewed By Me ECG Rhythm: Positive for: Atrial Fibrillation (tachy) O2 Sat by Pulse Oximetry: 96 Pulse Ox Interpretation: Normal - Radiology X-Ray: Interpreted by Me, Viewed By Me X-Ray Interpretation: No Acute Disease - CT Scan/US us Other Rad Studies (CT/US): Radiology Report Reviewed Other Rad Interpretation: no dvt - Progress ED Course And Treament: 1230: Feeling better. Continue tx and evaluation. 1340: Pending urine. Lactate 2.2, possible from urine source. Will tx with rocephin. Pt. also with chf and uncontrolled afib. Will be conservative on fluid hydration considering chf. Will repeat vbg. Staff having difficulty with urine. Pt. urinated and missed urinal. Will consider mag[place], but pt. does not want. He will try again with bedpan when he has a need to go. To avoid delay of antibiotics, will give pending urine. 1331: Spoke with Dr. Barraza. Will admit. - Critical Care Total Time (In Min): 30 Documented Critical Care: Time excludes all time spent performint seperately billable procedures Disposition - Clinical Impression Clinical Impression: Urinary tract infection, Severe sepsis, Uncontrolled atrial fibrillation, CHF exacerbation - Patient ED Disposition Is Patient to be Admitted: Yes Counseled Patient/Family Regarding: Studies Performed, Diagnosis - Disposition Disposition Time: 13:36 Condition: FAIR Forms: [employer] ([place]) - Pt Status Changed To: Hospital Disposition Of: Inpatient - Admit Certification Admit to Inpatient:: After my assessment, the patient will require hosp italization for at least two midnights. This is because of the severity of symptoms shown, intensity of services needed, and/or the medical risk in this patient being treated as an outpatient. - POA Present On Arrival: None
[2018-10-01] MEDS ORDERED: Albuterol-Ipratrop 3 mg / 0.5 (3 ml) UD ONE (11:53)
[2018-10-01 12:30] LABS: VENOUS BLOOD GAS BASE EXCESS 9.5 mmol/L (0.0-2.0); VENOUS BLOOD GAS PCO2 51 mmHg (40-60); VENOUS BLOOD GAS PO2 27 mm/Hg (30-55); VENOUS BLOOD PH 7.45 (7.32-7.43)
[2018-10-01] MEDS: Sodium Chloride 0.9% 1,000 ML IV SCH ×2 (12:35→21:41)
[2018-10-01 12:38] LABS: BASO # 0.1 K/uL (0.0-0.2); EOS # 0.1 K/uL (0.0-0.7); EOS % 1.4 % (0.0-4.0); HEMOGLOBIN 13.9 g/dL (12.0-18.0); LYMPH # 1.5 K/uL (1.0-4.3); LYMPH % 14.6 % (20.0-40.0); MEAN CELL VOLUME 87.6 fl (80.0-94.0); MEAN CORPUSCULAR HEMOGLOBIN 28.9 pg (27.0-31.0); MEAN PLATELET VOLUME 9.2 fl (7.2-11.7); MONO # 0.7 K/uL (0.0-0.8); MONO % 7.2 % (0.0-10.0); NEUT # 7.7 K/uL (1.8-7.0); NEUT % 75.8 % (50.0-75.0); RBC 4.8 Mil/uL (4.40-5.90); RED CELL DISTRIBUTION WIDTH 18.2 % (11.5-14.5); WHITE BLOOD COUNT 10.1 K/uL (4.8-10.8)
--- NOTE | 2018-10-01 12:40 | CT ---
Date of service: 10/01/2018 PROCEDURE: CT Abdomen and Pelvis without intravenous contrast HISTORY: R/O stone COMPARISON: Noncontrast abdomen pelvis CT 03/09/2011. TECHNIQUE: Helical CT of the abdomen and pelvis was performed without oral or intravenous contrast as per referring physician request. Coronal and sagittal reformats were generated. Radiation dose: Total exam DLP = 861.45 mGy-cm. This CT exam was performed using one or more of the following dose reduction techniques: Automated exposure control, adjustment of the mA and/or kV according to patient size, and/or use of iterative reconstruction technique. FINDINGS: LOWER THORAX: Interval cardiomegaly. Prominent bronchial thickening is appreciated bilaterally, suspicious for prominent bronchitis or possibly severe reactive airways disease. No definite alveolitis bilaterally. Linear atelectasis or fibrosis in the bilateral bases as well. Right lower lobe calcified granuloma again evident. Punctate pleural calcification right lower lobe. LIVER: Several punctate scattered calcified granuloma are seen throughout the right greater than left lobes of the liver which otherwise appears unremarkable. GALLBLADDER AND BILE DUCTS: Gallbladder is mildly distended with sludge at the dependent portion. Underlying cholelithiasis not excluded within the sludge. No gross mural thickening or pericholecystic fluid collection. Clinically correlate for potential cholecystitis nevertheless given distension. PANCREAS: Mild to mildly atrophic pancreas reiterated. No gross pancreatic mass appreciated. SPLEEN: Scattered punctate granulomata are noted throughout the liver. ADRENALS: Unremarkable. No mass. KIDNEYS AND URETERS: Unremarkable. No hydronephrosis. No solid mass. VASCULATURE: Nonaneurysmal abdominal aortic calcific atherosclerotic changes are identified. BOWEL: Unremarkable. No obstruction. No gross mural thickening. APPENDIX: Unremarkable. Normal appendix. PERITONEUM: Local peritoneal reaction is appreciated relative to the urinary bladder in the pelvis and there is a small umbilical hernia containing only fat. No ascites or free intra peritoneal gas collection evident. Small umbilical hernia noted. LYMPH NODES: Unremarkable. No enlarged lymph nodes. BLADDER: Urinary bladder is only mildly distended with increased mural thickness evident and local pericystic reaction is now evident in a pattern that may reflect cystitis. There hyperdensity within the urinary bladder which is amorphous and suspicious for hemorrhage. Underlying mass is not excluded though this could be a function of cystitis rather than neoplasm related. Clinically correlate further. REPRODUCTIVE: Markedly enlarged prostate gland measuring 7.5 x 8.1 cm mildly increased in size in the interval. BONES: Gross multilevel lumbar spine spondylosis. No acute fracture. OTHER FINDINGS: None. IMPRESSION: 1. Mural thickening is increased involving the urinary bladder diffusely with local reactive changes suspicious for cystitis. Hematuria is identified in the urinary bladder lumen. 2. Markedly enlarged prostate gland measuring 7.5 x 8.1 cm mildly increased in size in the interval. 3. Limited sludge is seen in the dependent gallbladder which is distended. No mural thickening or pericholecystic fluid collection. No overt pattern of cholecystitis. Clinically correlate.
[2018-10-01 12:45] LABS: INR 1.9; PROTHROMBIN TIME 21.4 Seconds (9.8-13.1)
[2018-10-01 12:48] LABS: PARTIAL THROMBOPLASTIN TIME 34.8 Seconds (25.6-37.1)
[2018-10-01 12:50] LABS: ALT/SGPT 27 U/L (21-72); AST/SGOT 32 U/L (17-59); BLOOD UREA NITROGEN 22 mg/dl (9-20); GFR NON-AFRICAN AMERICAN > 60
[2018-10-01 13:01] LABS: B-TYPE NATRIURETIC PEPTIDE 3730 pg/ml (0-900)
[2018-10-01] MEDS ORDERED: cefTRIAXone (Rocephin) 1 gm Inj IV ONE (13:28)
--- NOTE | 2018-10-01 13:44 | US ---
Date of service: 10/01/2018 PROCEDURE: Right lower extremity venous duplex Doppler. HISTORY: r/o dvt COMPARISON: Bilateral lower extremity venous ultrasound 10/07/2016.. TECHNIQUE: Common femoral, superficial femoral, popliteal and posterior tibial veins were evaluated. Flow was assessed with color Doppler, compressibility, assessment of phasic flow and augmentation response. FINDINGS: COMMON FEMORAL VEIN: Unremarkable. SUPERFICIAL FEMORAL VEIN: Unremarkable. POPLITEAL VEIN: Unremarkable. POSTERIOR TIBIAL VEIN: Unremarkable. OTHER FINDINGS: None. IMPRESSION: No evidence of deep venous thrombosis in the right lower extremity. No significant interval change right lower extremity deep venous system 10/07/2016.
[2018-10-01] MEDS ORDERED: cefTRIAXone (Rocephin) 1 gm Inj ONE (14:05)
--- NOTE | 2018-10-01 14:22 | CP.PCM.HP ---
<Riya Mccormick - Last Filed: 10/01/18 16:10> History of Present Illness - History of Present Illness History of Present Illness: CC: Blood in urine HPI: The patient is an 87 Y/O male with PMHx of Atrial Fib on Xarelto, HTN, CHF, Gouts, Knee OA, Chronic legs edema with stasis dermatitis who presented to the ED brought by family with c/o hematuria since yesterday, patient reports he woke up last night to void and noticed what appears to be a clot or stone that came out with urine, he reports he has been having bloody urine after that. Patient states he has h/o frequency with urination, but denies retention, pain or dysuria prior to starting with the hematuria. Patient also c/o persistent cough for approximately 3 weeks with production of whitish phlemg. He denies CP, SOB, nocturnal orthopnea, CATALAN, back pain, chills or fever now. Patient and family at beside endorse that he has had chronic leg swelling, but admits that his right leg is more swollen and red than usual in the last few days. Of Note patient endorses that he uses walker and wheelchair to move at home. ROS: As per HPI. PMD: Dr Soheila Allison [phone] PMH: Atrial Fib on Xarelto, HTN, CHF, Gouts, h/o DVT R leg, Knee OA, Chronic legs edema with stasis dermatitis FMH: Father of HTN and CATALAN, Mother stroke ALLERG: NKDA SURG: Double Hernia repair, Hemorrhoids, R Knee surgery. SOCHx: Quit smoking 25 years ago (pipe smoker), Quit heavy drinking of beer ~15 years ago. Pharmacy [facility]: [phone]. ED course: VS on arrival BP 134/98, HR 86 @10:30 then HR 132 @12:30, Saturating well at RA 96% On Monitor noted rhythm A Fib with RVR ~120s CBC: WBC 10.1 CHEM: Na 137, K 4.0 , BUN 22 H, Creat 1.0. Pro BNP 3730 H. Troponin I x1 normal. EKG: A FIb with RVR, anterior infarct, no ST T wave acute changes noted CXR:Reviewed by me noted with increased heart size, increased appearnce of Vera lines, pending final report RLE US: No evidence of DVT A/P CT reports: 1.Mural thickening of urinary bladder, possible cystitis, hematuria.2. Enlarged prostate. 3.limited sudge seen in gallbladder which is distended. no overt pattern of cholecystitis. ED Tx: Rocephin x1 given Cardizem IV 10 x1 given in ED Present on Admission - Present on Admission Any Indicators Present on Admission: No History of DVT/PE: No History of Uncontrolled Diabetes: No Urinary Catheter: No Decubitus Ulcer Present: No Past Patient History - Infectious Disease Hx of Infectious Diseases: None - Past Medical History & Family History Past Medical History?: Yes - Past Social History Smoking Status: Former Smoker - CARDIAC Hx Atrial Fibrillation: Yes Hx Congestive Heart Failure: Yes Hx Hypertension: Yes - PULMONARY Hx Respiratory Disorders: No - NEUROLOGICAL Hx Neurological Disorder: No - HEENT Hx HEENT Problems: No - RENAL Hx Chronic Kidney Disease: No - ENDOCRINE/METABOLIC Hx Endocrine Disorders: No - HEMATOLOGICAL/ONCOLOGICAL Hx Human Immunodeficiency Virus (HIV): No - INTEGUMENTARY Hx Dermatological Problems: Yes - MUSCULOSKELETAL/RHEUMATOLOGICAL Hx Arthritis: Yes Hx Fractures: Yes - GASTROINTESTINAL Hx Gastrointestinal Disorders: Yes Hx Hemorrhoids: Yes - GENITOURINARY/GYNECOLOGICAL Hx Genitourinary Disorders: No - PSYCHIATRIC Hx Psychophysiologic Disorder: No Hx Substance Use: No - SURGICAL HISTORY Hx Surgeries: Yes Other/Comment: cyst removal, hemorrhoidectomy - ANESTHESIA Hx Anesthesia: Yes Hx Anesthesia Reactions: No Meds Allergies/Adverse Reactions: Allergies Allergy/AdvReac Type Severity Reaction Status Date / Time No Known Allergies Allergy Verified 10/01/18 11:08 Physical Exam - Constitutional Appears: No Acute Distress - Head Exam Head Exam: NORMAL INSPECTION - Eye Exam Eye Exam: EOMI - ENT Exam ENT Exam: Mucous Membranes Moist - Respiratory Exam Respiratory Exam: Rales (to the bases). absent: Wheezes, Respiratory Distress - Cardiovascular Exam Cardiovascular Exam: Tachycardia, Irregular Rhythm - GI/Abdominal Exam GI & Abdominal Exam: absent: Tenderness Additional comments: Obese - Extremities Exam Extremities exam: Positive for: pedal edema Additional comments: RLE edema ++++>>LLE edema ++ Elephantiasis - Neurological Exam Neurological exam: Alert, Oriented x3 - Psychiatric Exam Psychiatric exam: Normal Affect - Skin Skin Exam: Normal Color, Warm Results - Vital Signs Recent Vital Signs: Last Vital Signs Temp 98.6 F 10/01/18 10:30 Pulse 132 H 10/01/18 12:30 Resp 20 10/01/18 10:30 BP 130/75 10/01/18 14:18 Pulse Ox 96 10/01/18 13:42 - Labs Result Diagrams: 10/01/18 12:30 10/01/18 12:30 Labs: Laboratory Results - last 24 hr 10/01/18 10/01/18 10/01/18 11:41 12:30 12:30 WBC 10.1 RBC 4.80 Hgb 13.9 Hct 42.1 MCV 87.6 D MCH 28.9 MCHC 33.0 RDW 18.2 H Plt Count 202 MPV 9.2 Neut % (Auto) 75.8 H Lymph % (Auto) 14.6 L [place] % (Auto) 7.2 Eos % (Auto) 1.4 Baso % (Auto) 1.0 Neut # (Auto) 7.7 H Lymph # (Auto) 1.5 [place] # (Auto) 0.7 Eos # (Auto) 0.1 Baso # (Auto) 0.1 PT INR APTT pO2 27 L VBG pH 7.45 H VBG pCO2 51 VBG HCO3 30.9 VBG Total CO2 37.0 H VBG O2 Sat (Calc) 51.2 VBG Base Excess 9.5 H VBG Potassium 5.1 Sodium 136.0 137 Chloride 100.0 98 Glucose 107 Lactate 2.2 H FiO2 21.0 Potassium 4.0 Carbon Dioxide 27 Anion Gap 16 BUN 22 H Creatinine 1.0 Est GFR ( Amer) > 60 Est GFR (Non-Af Amer) > 60 Random Glucose 107 Calcium 9.0 Phosphorus 3.2 Magnesium 2.1 Total Bilirubin 1.4 H AST 32 ALT 27 Alkaline Phosphatase 143 H Troponin I 0.0260 NT-Pro-B Natriuret Pep 3730 H Total Protein 7.9 Albumin 4.0 Globulin 4.0 H Albumin/Globulin Ratio 1.0 Venous Blood Potassium 5.1 Influenza Typ A,B (EIA) 10/01/18 10/01/18 12:30 12:30 WBC RBC Hgb Hct MCV MCH MCHC RDW Plt Count MPV Neut % (Auto) Lymph % (Auto) [place] % (Auto) Eos % (Auto) Baso % (Auto) Neut # (Auto) Lymph # (Auto) [place] # (Auto) Eos # (Auto) Baso # (Auto) PT 21.4 H INR 1.9 APTT 34.8 pO2 VBG pH VBG pCO2 VBG HCO3 VBG Total CO2 VBG O2 Sat (Calc) VBG Base Excess VBG Potassium Sodium Chloride Glucose Lactate FiO2 Potassium Carbon Dioxide Anion Gap BUN Creatinine Est GFR ( Amer) Est GFR (Non-Af Amer) Random Glucose Calcium Phosphorus Magnesium Total Bilirubin AST ALT Alkaline Phosphatase Troponin I NT-Pro-B Natriuret Pep Total Protein Albumin Globulin Albumin/Globulin Ratio Venous Blood Potassium Influenza Typ A,B (EIA) Negative for flu a/b Assessment & Plan - Assessment and Plan (Free Text) Assessment: 87 Y/O male with PMHx of Atrial Fib on Xarelto, HTN, CHF, Gouts, Knee OA, Chronic legs edema with stasis dermatitis who presented to the ED with c/o hematuria x 1 day. Patient has c/o persistent cough x 3 weeks with white phlegm production, negative for SOB, orthopnea, CP or fever. Found in ED to be A fib with RVR HR 120s Admitted for HEmaturia and A Fib with RVR. #Hematuria Underlying BPH Hold Xarelto for now Consult Urology Dr Mj HAMMOND , f/u pending monitor hematuria A/P CT reports: 1.Mural thickening of urinary bladder, possible cystitis, hematu leandro. 2. Enlarged prostate. #A fib with RVR Tele mnitor EKG: A FIb with RVR, anterior infarct, no ST T wave acute changes noted On xarelto for A fib, on hold due to hematuria Cardizem 10 IV x 1 given in ED C/w Metoprolol for rate cntrl Consult cardio Dr Santana F/u , pending F/u AM labs. #CHF Admit to Tele Pro BNP 3730 H EKG: A FIb with RVR, anterior infarct, no ST T wave acute changes noted CXR:Reviewed by me noted with increased heart size, increased appearance of Vera lines, pending final report by radiology CHEM: Na 137, K 4.0 , BUN 22 H, Creat 1.0. Pro BNP 3730 H. Troponin I x1 normal. 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 Case and plan d/w attending Dr Madi Wilson MD PGY1 <Lamonte Barraza D - Last Filed: 10/01/18 17:28> Results - Vital Signs Recent Vital Signs: Last Vital Signs Temp 98.5 F 10/01/18 17:14 Pulse 110 H 10/01/18 17:14 Resp 17 10/01/18 17:14 BP 120/82 10/01/18 17:14 Pulse Ox 96 10/01/18 17:14 - Labs Result Diagrams: 10/01/18 12:30 10/01/18 12:30 Labs: Laboratory Results - last 24 hr 10/01/18 10/01/18 10/01/18 11:41 12:30 12:30 WBC 10.1 RBC 4.80 Hgb 13.9 Hct 42.1 MCV 87.6 D MCH 28.9 MCHC 33.0 RDW 18.2 H Plt Count 202 MPV 9.2 Neut % (Auto) 75.8 H Lymph % (Auto) 14.6 L [place] % (Auto) 7.2 Eos % (Auto) 1.4 Baso % (Auto) 1.0 Neut # (Auto) 7.7 H Lymph # (Auto) 1.5 [place] # (Auto) 0.7 Eos # (Auto) 0.1 Baso # (Auto) 0.1 PT INR APTT pO2 27 L VBG pH 7.45 H VBG pCO2 51 VBG HCO3 30.9 VBG Total CO2 37.0 H VBG O2 Sat (Calc) 51.2 VBG Base Excess 9.5 H VBG Potassium 5.1 Sodium 136.0 137 Chloride 100.0 98 Glucose 107 Lactate 2.2 H FiO2 21.0 Potassium 4.0 Carbon Dioxide 27 Anion Gap 16 BUN 22 H Creatinine 1.0 Est GFR ( Amer) > 60 Est GFR (Non-Af Amer) > 60 Random Glucose 107 Calcium 9.0 Phosphorus 3.2 Magnesium 2.1 Total Bilirubin 1.4 H AST 32 ALT 27 Alkaline Phosphatase 143 H Troponin I 0.0260 NT-Pro-B Natriuret Pep 3730 H Total Protein 7.9 Albumin 4.0 Globulin 4.0 H Albumin/Globulin Ratio 1.0 Venous Blood Potassium 5.1 Urine Color Urine Clarity Urine pH Ur Specific [place] Urine Protein Urine Glucose (UA) Urine Ketones Urine Blood Urine Nitrate Urine Bilirubin Urine Urobilinogen Ur Leukocyte Esterase Urine RBC (Auto) Urine Microscopic WBC Amorphous Sediment Influenza Typ A,B (EIA) 10/01/18 10/01/18 10/01/18 12:30 12:30 14:50 WBC RBC Hgb Hct MCV MCH MCHC RDW Plt Count MPV Neut % (Auto) Lymph % (Auto) [place] % (Auto) Eos % (Auto) Baso % (Auto) Neut # (Auto) Lymph # (Auto) [place] # (Auto) Eos # (Auto) Baso # (Auto) PT 21.4 H INR 1.9 APTT 34.8 pO2 50 VBG pH 7.49 H VBG pCO2 39 L VBG HCO3 29.3 VBG Total CO2 30.9 H VBG O2 Sat (Calc) 91.1 H VBG Base Excess 5.9 H VBG Potassium 3.5 L Sodium 135.0 Chloride 101.0 Glucose 138 H Lactate 2.3 H FiO2 21.0 Potassium Carbon Dioxide Anion Gap BUN Creatinine Est GFR ( Amer) Est GFR (Non-Af Amer) Random Glucose Calcium Phosphorus Magnesium Total Bilirubin AST ALT Alkaline Phosphatase Troponin I NT-Pro-B Natriuret Pep Total Protein Albumin Globulin Albumin/Globulin Ratio Venous Blood Potassium 3.5 L Urine Color Urine Clarity Urine pH Ur Specific [place] Urine Protein Urine Glucose (UA) Urine Ketones Urine Blood Urine Nitrate Urine Bilirubin Urine Urobilinogen Ur Leukocyte Esterase Urine RBC (Auto) Urine Microscopic WBC Amorphous Sediment Influenza Typ A,B (EIA) Negative for flu a/b 10/01/18 15:48 WBC RBC Hgb Hct MCV MCH MCHC RDW Plt Count MPV Neut % (Auto) Lymph % (Auto) [place] % (Auto) Eos % (Auto) Baso % (Auto) Neut # (Auto) Lymph # (Auto) [place] # (Auto) Eos # (Auto) Baso # (Auto) PT INR APTT pO2 VBG pH VBG pCO2 VBG HCO3 VBG Total CO2 VBG O2 Sat (Calc) VBG Base Excess VBG Potassium Sodium Chloride Glucose Lactate FiO2 Potassium Carbon Dioxide Anion Gap BUN Creatinine Est GFR ( Amer) Est GFR (Non-Af Amer) Random Glucose Calcium Phosphorus Magnesium Total Bilirubin AST ALT Alkaline Phosphatase Troponin I NT-Pro-B Natriuret Pep Total Protein Albumin Globulin Albumin/Globulin Ratio Venous Blood Potassium Urine Color Red Urine Clarity Turbid Urine pH 6.0 Ur Specific [place] 1.011 Urine Protein 100 Urine Glucose (UA) 50 Urine Ketones Negative Urine Blood Moderate Urine Nitrate Negative Urine Bilirubin Negative Urine Urobilinogen 0.2-1.0 Ur Leukocyte Esterase Neg Urine RBC (Auto) 100 H Urine Microscopic WBC 3 Amorphous Sediment Rare H Influenza Typ A,B (EIA) Attending/Attestation - Attestation I have personally seen and examined this patient.: Yes I have fully participated in the care of the patient.: Yes I have reviewed all pertinent clinical information: Yes Notes (Text): 10/01/18 17:28 Patient seen and examined with resident. Case discussed and agreed with assessment and plan of management.
[2018-10-01 15:02] LABS: VENOUS BLOOD GAS BASE EXCESS 5.9 mmol/L (0.0-2.0); VENOUS BLOOD GAS PCO2 39 mmHg (40-60); VENOUS BLOOD GAS PO2 50 mm/Hg (30-55); VENOUS BLOOD PH 7.49 (7.32-7.43)
[2018-10-01 16:21] LABS: URINE BILIRUBIN NEGATIVE (NEGATIVE); URINE BLOOD MODERATE (NEGATIVE); URINE CLARITY TURBID (Clear); URINE COLOR RED (YELLOW); URINE GLUCOSE (UA) 50 mg/dL (NEGATIVE); URINE LEUKOCYTE ESTERASE NEG Leu/uL (Negative); URINE PROTEIN 100 mg/dL (NEGATIVE); URINE UROBILINOGEN 0.2-1.0 mg/dL (0.2-1.0)
[2018-10-01 16:22] LABS: URINE AMORPHOUS SEDIMENT RARE /ul (<OCC)
--- NOTE | 2018-10-01 16:55 | RAD ---
Date of service: 10/01/2018 HISTORY: Sepsis Patient COMPARISON: Chest radiographs 10/06/2016. TECHNIQUE: 1 view obtained. FINDINGS: LUNGS: No active pulmonary disease. PLEURA: No significant pleural effusion identified, no pneumothorax apparent. CARDIOVASCULAR: Calcific atherosclerotic changes are seen related to the thoracic aorta. Stable mild cardiomegaly. No pulmonary vascular congestion. OSSEOUS STRUCTURES: No significant abnormalities. VISUALIZED UPPER ABDOMEN: Normal. OTHER FINDINGS: None. IMPRESSION: Stable mild cardiomegaly. No pulmonary vascular congestion. No infiltrates bilaterally.
--- NOTE | 2018-10-01 18:08 | CP.PCM.PN ---
Subjective - Date & Time of Evaluation Date of Evaluation: 10/01/18 Time of Evaluation: 18:05 - Subjective Subjective: 87 year old male admitted from ER w gross hematuria discussed with nurse,Pt is comfortable vs are normal he was on anticoagulation at home Pt is voiding without difficulty Vs & HGb are normal Discussed with hospatilist who agree no need for stat intervention anti coagulation has been held and antibiotics given will see tomorrow. Mj Objective - Vital Signs/Intake and Output Vital Signs (last 24 hours): Temp Pulse Resp BP Pulse Ox 98.5 F 110 H 17 120/82 96 10/01/18 17:14 10/01/18 17:14 10/01/18 17:14 10/01/18 17:14 10/01/18 17:14 - Medications Medications: Current Medications Allopurinol (Zyloprim) 100 mg PO DAILY [facility] Cholecalciferol (Vitamin D) 1,000 intlu PO DAILY [facility] Cyanocobalamin (Vitamin B12 1000 Mcg Tab) 1,000 mcg PO DAILY [facility] Docusate Sodium (Colace) 100 mg PO BID PRN PRN Reason: Constipation Enalapril Maleate (Vasotec) 5 mg PO DAILY [facility] Last Admin: 10/01/18 16:55 Dose: 5 mg Furosemide (Lasix) 40 mg PO DAILY [facility] Sodium Chloride (Sodium Chloride 0.9%) 1,000 mls @ 150 mls/hr IV .[id number] [facility] Last Admin: 10/01/18 12:35 Dose: 150 mls/hr Ceftriaxone Sodium 1 gm/ (Sodium Chloride) 100 mls @ 100 mls/hr IVPB DAILY [facility]; Protocol Metoprolol Tartrate (Lopressor) 150 mg PO BID [facility] Pantoprazole Sodium (Protonix Ec Tab) 40 mg PO DAILY [facility] - Labs Labs: 10/01/18 12:30 10/01/18 12:30 PT 21.4 Seconds (9.8-13.1) H 10/01/18 12:30 INR 1.9 10/01/18 12:30 APTT 34.8 Seconds (25.6-37.1) 10/01/18 12:30
[2018-10-02 05:56] LABS: HEMOGLOBIN 13.5 g/dL (12.0-18.0); LYMPH # 0.7 K/uL (1.0-4.3); LYMPH % 9.4 % (20.0-40.0); MEAN CELL VOLUME 87.7 fl (80.0-94.0); MEAN CORPUSCULAR HEMOGLOBIN 28.8 pg (27.0-31.0); MEAN CORPUSCULAR HGB CONC 32.8 g/dL (33.0-37.0); MEAN PLATELET VOLUME 9.5 fl (7.2-11.7); MONO # 0.1 K/uL (0.0-0.8); NEUT # 6.8 K/uL (1.8-7.0); NEUT % 89.6 % (50.0-75.0); PLATELET COUNT 188 K/uL (130-400); RBC 4.69 Mil/uL (4.40-5.90); RED CELL DISTRIBUTION WIDTH 17.9 % (11.5-14.5); WHITE BLOOD COUNT 7.6 K/uL (4.8-10.8)
[2018-10-02 06:09] LABS: BLOOD UREA NITROGEN 26 mg/dl (9-20); CALCIUM 8.5 mg/dL (8.4-10.2); GFR NON-AFRICAN AMERICAN > 60
[2018-10-02 08:21] LABS: BANDS 2 % (0-2); LYMPHOCYTE 12 % (20-50); MONOCYTE 1 % (0-10); NEUTROPHIL 84 % (42-75); REACTIVE LYMPHOCYTES 1 % (0-0); TOTAL CELLS COUNTED 100
[2018-10-02 08:22] LABS: ANISOCYTOSIS SLIGHT; LARGE PLATELETS PRESENT; OVALOCYTES SLIGHT; PLATELET ESTIMATE NORMAL (NORMAL)
--- NOTE | 2018-10-02 09:35 | CP.PCM.PN ---
<Riya Mccormick - Last Filed: 10/02/18 12:56> Subjective - Date & Time of Evaluation Date of Evaluation: 10/02/18 Time of Evaluation: 09:40 - Subjective Subjective: Patient seen and examined this AM, NAD. Patient states that the hematuria has continued. He denies CP, SOB, Abdominal pain, N/V/D, or other acute complaint. Objective - Vital Signs/Intake and Output Vital Signs (last 24 hours): Temp Pulse Resp BP Pulse Ox 97.2 F L 113 H 20 144/92 H 98 10/02/18 08:32 10/02/18 08:32 10/02/18 08:32 10/02/18 08:32 10/02/18 08:32 - Medications Medications: Current Medications Allopurinol (Zyloprim) 100 mg PO DAILY [facility] Cholecalciferol (Vitamin D) 1,000 intlu PO DAILY [facility] Cyanocobalamin (Vitamin B12 1000 Mcg Tab) 1,000 mcg PO DAILY [facility] Docusate Sodium (Colace) 100 mg PO BID PRN PRN Reason: Constipation Enalapril Maleate (Vasotec) 5 mg PO DAILY [facility] Last Admin: 10/01/18 16:55 Dose: 5 mg Furosemide (Lasix) 40 mg PO DAILY [facility] Sodium Chloride (Sodium Chloride 0.9%) 1,000 mls @ 150 mls/hr IV .Q6H40M [facility] Last Admin: 10/01/18 21:41 Dose: 150 mls/hr Ceftriaxone Sodium 1 gm/ (Sodium Chloride) 100 mls @ 100 mls/hr IVPB DAILY [facility]; Protocol Metoprolol Tartrate (Lopressor) 150 mg PO BID [facility] Pantoprazole Sodium (Protonix Ec Tab) 40 mg PO DAILY [facility] - Labs Labs: 10/02/18 04:20 10/02/18 04:20 PT 21.4 Seconds (9.8-13.1) H 10/01/18 12:30 INR 1.9 10/01/18 12:30 APTT 34.8 Seconds (25.6-37.1) 10/01/18 12:30 - Constitutional Appears: No Acute Distress - Head Exam Head Exam: NORMAL INSPECTION - Eye Exam Eye Exam: EOMI - ENT Exam ENT Exam: Mucous Membranes Moist - Cardiovascular Exam Cardiovascular Exam: Tachycardia - GI/Abdominal Exam GI & Abdominal Exam: Distended, Soft. absent: Tenderness - Extremities Exam Extremities Exam: Pedal Edema - Neurological Exam Neurological Exam: Alert, Awake, Oriented x3 - Psychiatric Exam Psychiatric exam: Normal Affect - Skin Skin Exam: Normal Color, Warm Assessment and Plan - Assessment and Plan (Free Text) Assessment: 87 Y/O male with PMHx of Atrial Fib on Xarelto, HTN, CHF, Gouts, Knee OA, Chronic legs edema with stasis dermatitis who presented to the ED with c/o hematuria x 1 day. Patient has c/o persistent cough x 3 weeks with white phlegm production, negative for SOB, orthopnea, CP or fever. Found in ED to be A fib with RVR HR 120s Admitted for HEmaturia and A Fib with RVR. #Hematuria Underlying BPH Hold Xarelto for now Consult Urology Dr Mj HAMMOND , f/u pending monitor hematuria A/P CT reports: 1.Mural thickening of urinary bladder, possible cystitis, hematuria. 2. Enlarged prostate. #A fib with RVR Tele mnitor EKG: A FIb with RVR, anterior infarct, no ST T wave acute changes noted On xarelto for A fib, on hold due to hematuria Cardizem 10 IV x 1 given in ED C/w Metoprolol for rate cntrl Consult cardio Dr Santana F/u , pending F/u AM labs. #CHF Admit to Tele Pro BNP 3730 H EKG: A FIb with RVR, anterior infarct, no ST T wave acute changes noted CXR:Reviewed by me noted with increased heart size, increased appearance of Vera lines, pending final report by radiology CHEM: Na 137, K 4.0 , BUN 22 H, Creat 1.0. Pro BNP 3730 H. Troponin I x1 normal. 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 Case and plan d/w attending Dr Madi Wilson MD PGY1 <Lamonte Barraza D - Last Filed: 10/02/18 14:42> Objective - Vital Signs/Intake and Output Vital Signs (last 24 hours): Temp Pulse Resp BP Pulse Ox 97.5 F L 114 H 20 133/81 96 10/02/18 12:47 10/02/18 12:47 10/02/18 12:47 10/02/18 12:47 10/02/18 12:47 - Medications Medications: Current Medications Allopurinol (Zyloprim) 100 mg PO DAILY [facility] Last Admin: 10/02/18 10:35 Dose: 100 mg Cholecalciferol (Vitamin D) 1,000 intlu PO DAILY [facility] Last Admin: 10/02/18 10:34 Dose: 1,000 intlu Cyanocobalamin (Vitamin B12 1000 Mcg Tab) 1,000 mcg PO DAILY [facility] Last Admin: 10/02/18 10:34 Dose: 1,000 mcg Docusate Sodium (Colace) 100 mg PO BID PRN PRN Reason: Constipation Enalapril Maleate (Vasotec) 5 mg PO DAILY [facility] Last Admin: 10/02/18 10:33 Dose: 5 mg Furosemide (Lasix) 40 mg PO DAILY [facility] Last Admin: 10/02/18 10:31 Dose: 40 mg Ceftriaxone Sodium 1 gm/ (Sodium Chloride) 100 mls @ 100 mls/hr IVPB DAILY [facility]; Protocol Last Admin: 10/02/18 10:45 Dose: 100 mls/hr Metoprolol Tartrate (Lopressor) 150 mg PO TID [facility] Pantoprazole Sodium (Protonix Ec Tab) 40 mg PO DAILY [facility] Last Admin: 10/02/18 10:32 Dose: 40 mg - Labs Labs: 10/02/18 04:20 10/02/18 04:20 PT 21.4 Seconds (9.8-13.1) H 10/01/18 12:30 INR 1.9 10/01/18 12:30 APTT 34.8 Seconds (25.6-37.1) 10/01/18 12:30 Attending/Attestation - Attestation I have personally seen and examined this patient.: Yes I have fully participated in the care of the patient.: Yes I have reviewed all pertinent clinical information, including history, physical exam and plan: Yes Notes (Text): 10/02/18 14:41 Patient seen and examined with resident. Case discussed and agreed with assessment and plan.
[2018-10-02] MEDS: Pantoprazole 40 mg EC Tab PO SCH (10:32)
[2018-10-02] MEDS: Cholecalciferol 1,000 INTLU TAB PO SCH (10:34)
--- NOTE | 2018-10-02 10:39 | CP.PCM.CON ---
History of Present Illness - History of Present Illness History of Present Illness: This 87-year-old man arrived in the emergency room after complaining of hematuria. He also reported having passed a tiny stone the size of a pea before developing hematuria. He also reports significant dysuria. There is no prior history of renal calculi. He has had gout and has been taking allopurinol. He has a long history of hypertension and was discovered to have atrial fibrillation in September 2016 when a visiting nurse detected rapid heart rate. 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 The patient has severe osteoarth ritis of both knees and is virtually bed and chair bound. He spends prolonged periods of time sitting in the chair with his feet dangling down and has had chronic stasis dermatitis and chronic pedal edema as a consequence of venous stasis. He is an ex-smoker who quit smoking 25 years back. He has never been a diabetic and has never suffered a myocardial infarction. He has been taking a diuretic orally along with allopurinol, rivaroxaban and metoprolol to control his heart rate. He has not required hospitalization for last 2 years. Visiting nurse regularly checks him at home once or twice a month. Physical examination shows an elderly overweight man who is alert awake coherent and afebrile. He is able to lie virtually flat in bed and can carry on a conversation. His respiratory rate was 16 breaths/min and his telemetry showed heart rate of 110 bpm irregularly irregular. His blood pressure was 140/74 mmHg. His jugular venous pressure was not elevated there was nonpitting edema over both lower extremities. Pedal pulses could not be palpated because of severe pedal edema. The apex was not palpable. The first and second heart sounds were normal and distant. There was no gallop rhythm there were no rales. His abdomen was soft liver and spleen were not palpable. His electrocardiogram showed atrial fibrillation with rapid heart rate with a pattern of right axis and poor progression of R wave from V2 to V3 a pattern seen on his electrocardiogram of September 2016 as well. His echocardiogram of 2016 was also reviewed. The left ventricular systolic function was preserved with a pattern of left ventricular hypertrophy and a mildly enlarged left atrium. His lab data was noted. Impression: Hematuria probably secondary to bladder calculi. History of hyperuricemia, gout. 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 Ex-smoker. Chronic obesity. His rivaroxaban has been withheld. Once a renal work-up is completed it can be restarted. In the meantime he is stable from cardiovascular point of view. I have requested a uric acid level to consider the possibility of uric acid calculi. Past Patient History - Infectious Disease Hx of Infectious Diseases: None - Past Medical History & Family History Past Medical History?: Yes - Past Social History Smoking Status: Former Smoker - CARDIAC Hx Cardiac Disorders: Yes - PULMONARY Hx Respiratory Disorders: Yes - NEUROLOGICAL Hx Neurological Disorder: Yes - HEENT Hx HEENT Problems: No - RENAL Hx Chronic Kidney Disease: No - ENDOCRINE/METABOLIC Hx Endocrine Disorders: No - HEMATOLOGICAL/ONCOLOGICAL Hx Blood Disorders: Yes Hx AIDS: No Hx Human Immunodeficiency Virus (HIV): No - INTEGUMENTARY Hx Dermatological Problems: Yes - MUSCULOSKELETAL/RHEUMATOLOGICAL Hx Musculoskeletal Disorders: Yes Hx Falls: No - GASTROINTESTINAL Hx Gastrointestinal Disorders: Yes Hx Hemorrhoids: Yes - GENITOURINARY/GYNECOLOGICAL Hx Genitourinary Disorders: Yes - PSYCHIATRIC Hx Psychophysiologic Disorder: No Hx Substance Use: No - SURGICAL HISTORY Hx Surgeries: Yes Other/Comment: cyst removal, hemorrhoidectomy - ANESTHESIA Hx Anesthesia: Yes Hx Anesthesia Reactions: No Meds Allergies/Adverse Reactions: Allergies Allergy/AdvReac Type Severity Reaction Status Date / Time No Known Allergies Allergy Verified 10/01/18 11:08 - Medications Medications: Current Medications Allopurinol (Zyloprim) 100 mg PO DAILY [facility] Cholecalciferol (Vitamin D) 1,000 intlu PO DAILY [facility] Cyanocobalamin (Vitamin B12 1000 Mcg Tab) 1,000 mcg PO DAILY [facility] Docusate Sodium (Colace) 100 mg PO BID PRN PRN Reason: Constipation Enalapril Maleate (Vasotec) 5 mg PO DAILY [facility] Last Admin: 10/01/18 16:55 Dose: 5 mg Furosemide (Lasix) 40 mg PO DAILY [facility] Ceftriaxone Sodium 1 gm/ (Sodium Chloride) 100 mls @ 100 mls/hr IVPB DAILY [facility]; Protocol Pantoprazole Sodium (Protonix Ec Tab) 40 mg PO DAILY [facility] Results - Vital Signs Recent Vital Signs: Last Vital Signs Temp 97.2 F L 10/02/18 08:32 Pulse 113 H 10/02/18 08:32 Resp 20 10/02/18 08:32 BP 144/92 H 10/02/18 08:32 Pulse Ox 98 10/02/18 08:32 - Labs Result Diagrams: 10/02/18 04:20 10/02/18 04:20 Labs: Laboratory Results - last 24 hr 10/01/18 10/01/18 10/01/18 11:41 12:30 12:30 WBC 10.1 RBC 4.80 Hgb 13.9 Hct 42.1 MCV 87.6 D MCH 28.9 MCHC 33.0 RDW 18.2 H Plt Count 202 MPV 9.2 Neut % (Auto) 75.8 H Lymph % (Auto) 14.6 L [place] % (Auto) 7.2 Eos % (Auto) 1.4 Baso % (Auto) 1.0 Neut # (Auto) 7.7 H Lymph # (Auto) 1.5 [place] # (Auto) 0.7 Eos # (Auto) 0.1 Baso # (Auto) 0.1 Neutrophils % (Manual) Band Neutrophils % Lymphocytes % (Manual) Reactive Lymphs % Monocytes % (Manual) Platelet Estimate Large Platelets Anisocytosis (manual) Ovalocytes PT INR APTT pO2 27 L VBG pH 7.45 H VBG pCO2 51 VBG HCO3 30.9 VBG Total CO2 37.0 H VBG O2 Sat (Calc) 51.2 VBG Base Excess 9.5 H VBG Potassium 5.1 Sodium 136.0 137 Chloride 100.0 98 Glucose 107 Lactate 2.2 H FiO2 21.0 Potassium 4.0 Carbon Dioxide 27 Anion Gap 16 BUN 22 H Creatinine 1.0 Est GFR ( Amer) > 60 Est GFR (Non-Af Amer) > 60 POC Glucose (mg/dL) Random Glucose 107 Calcium 9.0 Phosphorus 3.2 Magnesium 2.1 Total Bilirubin 1.4 H AST 32 ALT 27 Alkaline Phosphatase 143 H Troponin I 0.0260 NT-Pro-B Natriuret Pep 3730 H Total Protein 7.9 Albumin 4.0 Globulin 4.0 H Albumin/Globulin Ratio 1.0 Venous Blood Potassium 5.1 Urine Color Urine Clarity Urine pH Ur Specific [place] Urine Protein Urine Glucose (UA) Urine Ketones Urine Blood Urine Nitrate Urine Bilirubin Urine Urobilinogen Ur Leukocyte Esterase Urine RBC (Auto) Urine Microscopic WBC Amorphous Sediment Influenza Typ A,B (EIA) 10/01/18 10/01/18 10/01/18 12:30 12:30 14:50 WBC RBC Hgb Hct MCV MCH MCHC RDW Plt Count MPV Neut % (Auto) Lymph % (Auto) [place] % (Auto) Eos % (Auto) Baso % (Auto) Neut # (Auto) Lymph # (Auto) [place] # (Auto) Eos # (Auto) Baso # (Auto) Neutrophils % (Manual) Band Neutrophils % Lymphocytes % (Manual) Reactive Lymphs % Monocytes % (Manual) Platelet Estimate Large Platelets Anisocytosis (manual) Ovalocytes PT 21.4 H INR 1.9 APTT 34.8 pO2 50 VBG pH 7.49 H VBG pCO2 39 L VBG HCO3 29.3 VBG Total CO2 30.9 H VBG O2 Sat (Calc) 91.1 H VBG Base Excess 5.9 H VBG Potassium 3.5 L Sodium 135.0 Chloride 101.0 Glucose 138 H Lactate 2.3 H FiO2 21.0 Potassium Carbon Dioxide Anion Gap BUN Creatinine Est GFR ( Amer) Est GFR (Non-Af Amer) POC Glucose (mg/dL) Random Glucose Calcium Phosphorus Magnesium Total Bilirubin AST ALT Alkaline Phosphatase Troponin I NT-Pro-B Natriuret Pep Total Protein Albumin Globulin Albumin/Globulin Ratio Venous Blood Potassium 3.5 L Urine Color Urine Clarity Urine pH Ur Specific [place] Urine Protein Urine Glucose (UA) Urine Ketones Urine Blood Urine Nitrate Urine Bilirubin Urine Urobilinogen Ur Leukocyte Esterase Urine RBC (Auto) Urine Microscopic WBC Amorphous Sediment Influenza Typ A,B (EIA) Negative for flu a/b 10/01/18 10/02/18 10/02/18 15:48 04:20 04:20 WBC 7.6 RBC 4.69 Hgb 13.5 Hct 41.2 MCV 87.7 MCH 28.8 MCHC 32.8 L RDW 17.9 H Plt Count 188 MPV 9.5 Neut % (Auto) 89.6 H Lymph % (Auto) 9.4 L [place] % (Auto) 1.0 Eos % (Auto) 0.0 Baso % (Auto) 0.0 Neut # (Auto) 6.8 Lymph # (Auto) 0.7 L [place] # (Auto) 0.1 Eos # (Auto) 0.0 Baso # (Auto) 0.0 Neutrophils % (Manual) 84 H Band Neutrophils % 2 Lymphocytes % (Manual) 12 L Reactive Lymphs % 1 H Monocytes % (Manual) 1 Platelet Estimate Normal Large Platelets Present Anisocytosis (manual) Slight Ovalocytes Slight PT INR APTT pO2 VBG pH VBG pCO2 VBG HCO3 VBG Total CO2 VBG O2 Sat (Calc) VBG Base Excess VBG Potassium Sodium 138 Chloride 100 Glucose Lactate FiO2 Potassium 3.8 Carbon Dioxide 29 Anion Gap 13 BUN 26 H Creatinine 1.1 Est GFR ( Amer) > 60 Est GFR (Non-Af Amer) > 60 POC Glucose (mg/dL) Random Glucose 175 H Calcium 8.5 Phosphorus Magnesium Total Bilirubin AST ALT Alkaline Phosphatase Troponin I NT-Pro-B Natriuret Pep Total Protein Albumin Globulin Albumin/Globulin Ratio Venous Blood Potassium Urine Color Red Urine Clarity Turbid Urine pH 6.0 Ur Specific [place] 1.011 Urine Protein 100 Urine Glucose (UA) 50 Urine Ketones Negative Urine Blood Moderate Urine Nitrate Negative Urine Bilirubin Negative Urine Urobilinogen 0.2-1.0 Ur Leukocyte Esterase Neg Urine RBC (Auto) 100 H Urine Microscopic WBC 3 Amorphous Sediment Rare H Influenza Typ A,B (EIA) 10/02/18 06:23 WBC RBC Hgb Hct MCV MCH MCHC RDW Plt Count MPV Neut % (Auto) Lymph % (Auto) [place] % (Auto) Eos % (Auto) Baso % (Auto) Neut # (Auto) Lymph # (Auto) [place] # (Auto) Eos # (Auto) Baso # (Auto) Neutrophils % (Manual) Band Neutrophils % Lymphocytes % (Manual) Reactive Lymphs % Monocytes % (Manual) Platelet Estimate Large Platelets Anisocytosis (manual) Ovalocytes PT INR APTT pO2 VBG pH VBG pCO2 VBG HCO3 VBG Total CO2 VBG O2 Sat (Calc) VBG Base Excess VBG Potassium Sodium Chloride Glucose Lactate FiO2 Potassium Carbon Dioxide Anion Gap BUN Creatinine Est GFR ( Amer) Est GFR (Non-Af Amer) POC Glucose (mg/dL) 172 H Random Glucose Calcium Phosphorus Magnesium Total Bilirubin AST ALT Alkaline Phosphatase Troponin I NT-Pro-B Natriuret Pep Total Protein Albumin Globulin Albumin/Globulin Ratio Venous Blood Potassium Urine Color Urine Clarity Urine pH Ur Specific [place] Urine Protein Urine Glucose (UA) Urine Ketones Urine Blood Urine Nitrate Urine Bilirubin Urine Urobilinogen Ur Leukocyte Esterase Urine RBC (Auto) Urine Microscopic WBC Amorphous Sediment Influenza Typ A,B (EIA)
[2018-10-02 16:31] LABS: URINE BACTERIA OCC (<OCC); URINE BILIRUBIN NEGATIVE (NEGATIVE); URINE CLARITY CLOUDY (Clear); URINE COLOR RED (YELLOW); URINE GLUCOSE (UA) NEG (NEGATIVE); URINE LEUKOCYTE ESTERASE NEG Leu/uL (Negative); URINE PROTEIN 100 mg/dL (NEGATIVE); URINE UROBILINOGEN 0.2-1.0 mg/dL (0.2-1.0)
[2018-10-02 16:35] LABS: URINE BLOOD LARGE (NEGATIVE)
--- NOTE | 2018-10-02 16:57 | PQF ---
PROVIDER RESPONSE TEXT: Chronic A fib REVIEWER QUERY TEXT: Atrial Fibrillation Type Atrial fibrillation is documented in the Medical Record. Please specify the type Such as: -- Chronic -- Paroxysmal -- Permanent -- Persistent -- Other, please specify The patient's Clinical Indicators include: History of atrial fibrillation. On Xarelto at home. Admitted with Hematuria and A Fib with RVR. Cardizem IVP x 1 in the ER and started on Metoprolol. Query created by: Lesia Burnett on 10/02/2018 1:07 PM Electronically signed by: Riya Manriquez 10/02/2018 4:54 PM
--- NOTE | 2018-10-02 16:57 | PQF ---
PROVIDER RESPONSE TEXT: Chronic CHF REVIEWER QUERY TEXT: CHF Acuity and Type History of Congestive Heart Failure chronic diastolic is documented in the Medical Record. AFTER WORK UP please document the acuity (includes probable or suspected) for this admission. Such as: Acuity: -- Acute -- Chronic -- Acute on chronic -- Other, please specify The patient's Clinical Indicators include: Admitted with hematuria and atrial fibrillation with RVR. Pro BNP 3730 and given Lasix IV x 1 dose in the ER. Maintained on Lasix po and Vasotec. ECHO PENDING ER: CHF exacerbation Cardiology: Chronic congestive cardiac failure which was left ventricular diastolic. Query created by: Lesia Burnett on 10/02/2018 1:20 PM Electronically signed by: Riya Manriquez 10/02/2018 4:54 PM
--- NOTE | 2018-10-02 17:01 | CP.PCM.PN ---
Subjective - Date & Time of Evaluation Date of Evaluation: 10/02/18 Time of Evaluation: 16:58 - Subjective Subjective: Pt examined chart reviewed discussed with daughter and Pt. A hematuria due to bph,hx neg prostate biopsy in past. Suggest will start Fomax and proscar to facilitate passage of clots and shrink prostate. if hematuria does not resolve with time cysto may be necessary. Mj Objective - Vital Signs/Intake and Output Vital Signs (last 24 hours): Temp Pulse Resp BP Pulse Ox 97.8 F 116 H 20 130/84 95 10/02/18 15:39 10/02/18 15:39 10/02/18 15:39 10/02/18 15:39 10/02/18 15:39 - Medications Medications: Current Medications Allopurinol (Zyloprim) 100 mg PO DAILY [facility] Last Admin: 10/02/18 10:35 Dose: 100 mg Cholecalciferol (Vitamin D) 1,000 intlu PO DAILY [facility] Last Admin: 10/02/18 10:34 Dose: 1,000 intlu Cyanocobalamin (Vitamin B12 1000 Mcg Tab) 1,000 mcg PO DAILY [facility] Last Admin: 10/02/18 10:34 Dose: 1,000 mcg Docusate Sodium (Colace) 100 mg PO BID PRN PRN Reason: Constipation Enalapril Maleate (Vasotec) 5 mg PO DAILY [facility] Last Admin: 10/02/18 10:33 Dose: 5 mg Furosemide (Lasix) 40 mg PO DAILY [facility] Last Admin: 10/02/18 10:31 Dose: 40 mg Ceftriaxone Sodium 1 gm/ (Sodium Chloride) 100 mls @ 100 mls/hr IVPB DAILY [facility]; Protocol Last Admin: 10/02/18 10:45 Dose: 100 mls/hr Metoprolol Tartrate (Lopressor) 150 mg PO TID [facility] Pantoprazole Sodium (Protonix Ec Tab) 40 mg PO DAILY [facility] Last Admin: 10/02/18 10:32 Dose: 40 mg - Labs Labs: 10/02/18 04:20 10/02/18 04:20 PT 21.4 Seconds (9.8-13.1) H 10/01/18 12:30 INR 1.9 10/01/18 12:30 APTT 34.8 Seconds (25.6-37.1) 10/01/18 12:30
--- NOTE | 2018-10-02 17:02 | CP.PCM.PN ---
Subjective - Date & Time of Evaluation Date of Evaluation: 10/02/18 Time of Evaluation: 17:02 Objective - Vital Signs/Intake and Output Vital Signs (last 24 hours): Temp Pulse Resp BP Pulse Ox 97.8 F 116 H 20 130/84 95 10/02/18 15:39 10/02/18 15:39 10/02/18 15:39 10/02/18 15:39 10/02/18 15:39 - Medications Medications: Current Medications Allopurinol (Zyloprim) 100 mg PO DAILY [facility] Last Admin: 10/02/18 10:35 Dose: 100 mg Cholecalciferol (Vitamin D) 1,000 intlu PO DAILY [facility] Last Admin: 10/02/18 10:34 Dose: 1,000 intlu Cyanocobalamin (Vitamin B12 1000 Mcg Tab) 1,000 mcg PO DAILY [facility] Last Admin: 10/02/18 10:34 Dose: 1,000 mcg Docusate Sodium (Colace) 100 mg PO BID PRN PRN Reason: Constipation Enalapril Maleate (Vasotec) 5 mg PO DAILY [facility] Last Admin: 10/02/18 10:33 Dose: 5 mg Furosemide (Lasix) 40 mg PO DAILY [facility] Last Admin: 10/02/18 10:31 Dose: 40 mg Ceftriaxone Sodium 1 gm/ (Sodium Chloride) 100 mls @ 100 mls/hr IVPB DAILY [facility]; Protocol Last Admin: 10/02/18 10:45 Dose: 100 mls/hr Metoprolol Tartrate (Lopressor) 150 mg PO TID [facility] Pantoprazole Sodium (Protonix Ec Tab) 40 mg PO DAILY [facility] Last Admin: 10/02/18 10:32 Dose: 40 mg - Labs Labs: 10/02/18 04:20 10/02/18 04:20 PT 21.4 Seconds (9.8-13.1) H 10/01/18 12:30 INR 1.9 10/01/18 12:30 APTT 34.8 Seconds (25.6-37.1) 10/01/18 12:30
--- NOTE | 2018-10-02 18:05 | CARD ---
APPROVED REPORT Date of service: 10/02/2018 EXAM: Two-dimensional and M-mode echocardiogram with Doppler and color Doppler. Other Information Quality : GoodRhythm : Atrial Fibrillation INDICATION Atrial Fibrillation Congestive Heart Failure 2D DIMENSIONS IVSd1.31 (0.7-1.1cm)LVDd3.30 (3.9-5.9cm) LVOT Diameter1.93 (1.8-2.4cm)PWd1.05 (0.7-1.1cm) IVSs1.31 (0.8-1.2cm)LVDs2.66 (2.5-4.0cm) FS (%) 19.3 %PWs1.53 (0.8-1.2cm) M-Mode DIMENSIONS Left Atrium (MM)4.25 (2.5-4.0cm)IVSd1.25 (0.7-1.1cm) Aortic Root3.78 (2.2-3.7cm)LVDd3.84 (4.0-5.6cm) Aortic Cusp Exc.1.63 (1.5-2.0cm)PWd1.41 (0.7-1.1cm) IVSs1.25 cmFS (%) 13 % LVDs3.34 (2.0-3.8cm)PWs1.63 cm Aortic Valve AoV Peak Huvmgoso88.8cm/sAoV VTI14.6cmAO Peak GR.4mmHg LVOT Peak Dodkkkzb58.5cm/sLVOT VTI11.04cmAO Mean GR.2mmHg JESUS (VMAX)0.95zx4XIQ (VTI)1.07cm2 Mitral Valve E/A ratio0.0 TDI E/Lateral E'0.0E/Medial E'0.0 Tricuspid Valve TR Peak [id number]/sRAP [id number] Peak Gr.32mmHg [id number] LEFT VENTRICLE The left ventricle is normal size. There is normal left ventricular wall thickness. The left ventricular systolic function is normal. The estimated ejection fraction is 50-55% No regional wall motion abnormalities noted.. The left ventricular diastolic function cannot be assessed due to underlying atrial fibrillation. No left ventricle thrombus noted on this study. There is no ventricular septal defect visualized. There is no left ventricular aneurysm. There is no mass noted in the left ventricle. RIGHT VENTRICLE The right ventricle is normal size. There is normal right ventricular wall thickness. The right ventricular systolic function is normal. ATRIA The left atrium is moderately dilated. The right atrium size is normal. The interatrial septum is intact with no evidence for an atrial septal defect. AORTIC VALVE The aortic valve is normal in structure. No aortic regurgitation is present. There is no aortic valvular stenosis. There is no aortic valvular vegetation. MITRAL VALVE The mitral valve is normal in structure. There is no evidence of mitral valve prolapse. There is no mitral valve stenosis. There is no mitral valve regurgitation noted. TRICUSPID VALVE The tricuspid valve is normal in structure. There is moderate tricuspid valve regurgitation noted. RVSP is calculated at 40 mm Hg. There is no tricuspid valve prolapse or vegetation. There is no tricuspid valve stenosis. PULMONIC VALVE The pulmonary valve is normal in structure. There is no pulmonic valvular regurgitation. There is no pulmonic valvular stenosis. GREAT VESSELS The aortic root is normal in size. The ascending aorta is normal in size. The pulmonary artery is normal. The IVC is normal in size and collapses >50% with inspiration. PERICARDIAL EFFUSION There is no pericardial effusion. There is no pleural effusion. <Conclusion> Technically difficult study The estimated ejection fraction is 50-55% The left ventricular diastolic function cannot be assessed due to underlying atrial fibrillation. The left atrium is moderately dilated. There is moderate tricuspid valve regurgitation noted. RVSP is calculated at 40 mm Hg.
[2018-10-03 05:08] LABS: HEMOGLOBIN 13.9 g/dL (12.0-18.0); MEAN CELL VOLUME 87.8 fl (80.0-94.0); MEAN CORPUSCULAR HEMOGLOBIN 28.4 pg (27.0-31.0); MEAN CORPUSCULAR HGB CONC 32.3 g/dL (33.0-37.0); RBC 4.89 Mil/uL (4.40-5.90); RED CELL DISTRIBUTION WIDTH 18.2 % (11.5-14.5); WHITE BLOOD COUNT 18.5 K/uL (4.8-10.8)
[2018-10-03 05:31] LABS: BLOOD UREA NITROGEN 33 mg/dl (9-20); CALCIUM 8.9 mg/dL (8.4-10.2); GFR NON-AFRICAN AMERICAN 57
--- NOTE | 2018-10-03 06:37 | CP.PCM.PN ---
Objective - Vital Signs/Intake and Output Vital Signs (last 24 hours): Temp Pulse Resp BP Pulse Ox 97.5 F L 104 H 18 138/89 97 10/03/18 00:40 10/03/18 00:40 10/03/18 00:40 10/03/18 00:40 10/03/18 00:40 Intake and Output: 10/02/18 10/03/18 18:59 06:59 Intake Total 1200 Balance 1200 - Medications Medications: Current Medications Allopurinol (Zyloprim) 100 mg PO DAILY [facility] Last Admin: 10/02/18 10:35 Dose: 100 mg Cholecalciferol (Vitamin D) 1,000 intlu PO DAILY [facility] Last Admin: 10/02/18 10:34 Dose: 1,000 intlu Cyanocobalamin (Vitamin B12 1000 Mcg Tab) 1,000 mcg PO DAILY [facility] Last Admin: 10/02/18 10:34 Dose: 1,000 mcg Docusate Sodium (Colace) 100 mg PO BID PRN PRN Reason: Constipation Enalapril Maleate (Vasotec) 5 mg PO DAILY [facility] Last Admin: 10/02/18 10:33 Dose: 5 mg Finasteride (Proscar) 5 mg PO DAILY [facility] Furosemide (Lasix) 40 mg PO DAILY [facility] Last Admin: 10/02/18 10:31 Dose: 40 mg Ceftriaxone Sodium 1 gm/ (Sodium Chloride) 100 mls @ 100 mls/hr IVPB DAILY [facility]; Protocol Last Admin: 10/02/18 10:45 Dose: 100 mls/hr Metoprolol Tartrate (Lopressor) 150 mg PO TID [facility] Last Admin: 10/02/18 17:45 Dose: 150 mg Pantoprazole Sodium (Protonix Ec Tab) 40 mg PO DAILY [facility] Last Admin: 10/02/18 10:32 Dose: 40 mg Tamsulosin HCl (Flomax) 0.4 mg PO DAILY [facility] - Labs Labs: 10/03/18 04:35 10/03/18 04:35 PT 21.4 Seconds (9.8-13.1) H 10/01/18 12:30 INR 1.9 10/01/18 12:30 APTT 34.8 Seconds (25.6-37.1) 10/01/18 12:30
[2018-10-03 08:05] VITALS: RESP 18
[2018-10-03] MEDS: Pantoprazole 40 mg EC Tab PO SCH (09:02)
[2018-10-03] MEDS: Cholecalciferol 1,000 INTLU TAB PO SCH (09:03)
[2018-10-03] MEDS: Sodium Chloride 0.9% 1,000 ML IV SCH (09:03)
[2018-10-03 11:28] VITALS: O2SAT 98
[2018-10-03 11:58] VITALS: BP 127/82; PULSE 105; TEMP 97.5
--- NOTE | 2018-10-03 12:11 | CP.PCM.DIS ---
<Nataliaroland ManriquezRiya - Last Filed: 10/03/18 12:54> Provider - Provider Date of Admission: 10/01/18 14:11 Attending physician: Lamonte Barraza MD Consults: 10/01/18 14:19 Cardiology Consult Routine Comment: Consulting Provider: Wayne Santana V Consulting Physician: Wayne Santana V Reason for Consult: AFib with RVR, CHF 10/01/18 18:11 Urology Consult Routine Comment: Consulting Provider: Armando Barker Jr. Consulting Physician: Armando Barker Jr. Reason for Consult: gross hematuria with massively enlarged prostate 10/03/18 07:42 Nursing Referral for Wound Care Routine Comment: Physician Instructions: Reason For Exam: wound care Time Spent in preparation of Discharge (in minutes): 33 Diagnosis - Discharge Diagnosis (1) A-fib Status: Acute (2) Hematuria Status: Acute (3) Cellulitis of lower leg Status: Acute Hospital Course - Lab Results Lab Results: Micro Results 10/02/18 16:06 Urine,Clean Catch Urine Culture - Final No Growth (<1,000 CFU/ML) 10/01/18 15:15 Urine,Clean Catch Urine Culture - Final No Growth (<1,000 CFU/ML) 10/01/18 12:30 Blood Blood Culture - Preliminary NO GROWTH AFTER 24 HOURS Most Recent Lab Values WBC 18.5 K/uL (4.8-10.8) H D 10/03/18 04:35 RBC 4.89 Mil/uL (4.40-5.90) 10/03/18 04:35 Hgb 13.9 g/dL (12.0-18.0) 10/03/18 04:35 Hct 42.9 % (35.0-51.0) 10/03/18 04:35 MCV 87.8 fl (80.0-94.0) 10/03/18 04:35 MCH 28.4 pg (27.0-31.0) 10/03/18 04:35 MCHC 32.3 g/dL (33.0-37.0) L 10/03/18 04:35 RDW 18.2 % (11.5-14.5) H 10/03/18 04:35 Plt Count 206 K/uL (130-400) 10/03/18 04:35 MPV 9.5 fl (7.2-11.7) 10/02/18 04:20 Neut % (Auto) 89.6 % (50.0-75.0) H 10/02/18 04:20 Lymph % (Auto) 9.4 % (20.0-40.0) L 10/02/18 04:20 [place] % (Auto) 1.0 % (0.0-10.0) 10/02/18 04:20 Eos % (Auto) 0.0 % (0.0-4.0) 10/02/18 04:20 Baso % (Auto) 0.0 % (0.0-2.0) 10/02/18 04:20 Neut # (Auto) 6.8 K/uL (1.8-7.0) 10/02/18 04:20 Lymph # (Auto) 0.7 K/uL (1.0-4.3) L 10/02/18 04:20 [place] # (Auto) 0.1 K/uL (0.0-0.8) 10/02/18 04:20 Eos # (Auto) 0.0 K/uL (0.0-0.7) 10/02/18 04:20 Baso # (Auto) 0.0 K/uL (0.0-0.2) 10/02/18 04:20 Neutrophils % (Manual) 84 % (42-75) H 10/02/18 04:20 Band Neutrophils % 2 % (0-2) 10/02/18 04:20 Lymphocytes % (Manual) 12 % (20-50) L 10/02/18 04:20 Reactive Lymphs % 1 % (0-0) H 10/02/18 04:20 Monocytes % (Manual) 1 % (0-10) 10/02/18 04:20 Platelet Estimate Normal (NORMAL) 10/02/18 04:20 Large Platelets Present 10/02/18 04:20 Anisocytosis (manual) Slight 10/02/18 04:20 Ovalocytes Slight 10/02/18 04:20 PT 21.4 Seconds (9.8-13.1) H 10/01/18 12:30 INR 1.9 10/01/18 12:30 APTT 34.8 Seconds (25.6-37.1) 10/01/18 12:30 pO2 50 mm/Hg (30-55) 10/01/18 14:50 VBG pH 7.49 (7.32-7.43) H 10/01/18 14:50 VBG pCO2 39 mmHg (40-60) L 10/01/18 14:50 VBG HCO3 29.3 mmol/L 10/01/18 14:50 VBG Total CO2 30.9 mmol/L (22-28) H 10/01/18 14:50 VBG O2 Sat (Calc) 91.1 % (40-65) H 10/01/18 14:50 VBG Base Excess 5.9 mmol/L (0.0-2.0) H 10/01/18 14:50 VBG Potassium 3.5 mmol/L (3.6-5.2) L 10/01/18 14:50 Sodium 135.0 mmol/L (132-148) 10/01/18 14:50 Chloride 101.0 mmol/L (98-107) 10/01/18 14:50 Glucose 138 mg/dL (75-110) H 10/01/18 14:50 Lactate 2.3 mmol/L (0.7-2.1) H 10/01/18 14:50 FiO2 21.0 % 10/01/18 14:50 Sodium 140 mmol/l (132-148) 10/03/18 04:35 Potassium 3.8 MMOL/L (3.6-5.0) 10/03/18 04:35 Chloride 104 mmol/L (98-107) 10/03/18 04:35 Carbon Dioxide 24 mmol/L (22-30) 10/03/18 04:35 Anion Gap 16 (10-20) 10/03/18 04:35 BUN 33 mg/dl (9-20) H 10/03/18 04:35 Creatinine 1.2 mg/dl (0.8-1.5) 10/03/18 04:35 Est GFR ( Amer) > 60 10/03/18 04:35 Est GFR (Non-Af Amer) 57 10/03/18 04:35 POC Glucose (mg/dL) 176 mg/dL (65-110) H 10/03/18 10:34 Random Glucose 136 mg/dL (75-110) H 10/03/18 04:35 Uric Acid 8.4 mg/Dl (3.5-8.5) 10/02/18 10:00 Calcium 8.9 mg/dL (8.4-10.2) 10/03/18 04:35 Phosphorus 3.2 mg/dl (2.5-4.5) 10/01/18 12:30 Magnesium 2.1 MG/DL (1.6-2.3) 10/01/18 12:30 Total Bilirubin 1.4 mg/dl (0.2-1.3) H 10/01/18 12:30 AST 32 U/L (17-59) 10/01/18 12:30 ALT 27 U/L (21-72) 10/01/18 12:30 Alkaline Phosphatase 143 U/L (38-126) H 10/01/18 12:30 Troponin I 0.0260 ng/mL (0.00-0.120) 10/01/18 12:30 NT-Pro-B Natriuret Pep 3730 pg/ml (0-900) H 10/01/18 12:30 Total Protein 7.9 G/DL (6.3-8.2) 10/01/18 12:30 Albumin 4.0 g/dL (3.5-5.0) 10/01/18 12:30 Globulin 4.0 gm/dL (2.2-3.9) H 10/01/18 12:30 Albumin/Globulin Ratio 1.0 (1.0-2.1) 10/01/18 12:30 Venous Blood Potassium 3.5 mmol/L (3.6-5.2) L 10/01/18 14:50 Urine Color Red (YELLOW) 10/02/18 16:06 Urine Clarity Cloudy (Clear) 10/02/18 16:06 Urine pH 6.0 (5.0-8.0) 10/02/18 16:06 Ur Specific [place] 1.008 (1.003-1.030) 10/02/18 16:06 Urine Protein 100 mg/dL (NEGATIVE) 10/02/18 16:06 Urine Glucose (UA) Neg mg/dL (NEGATIVE) 10/02/18 16:06 Urine Ketones Negative mg/dL (NEGATIVE) 10/02/18 16:06 Urine Blood Large (NEGATIVE) 10/02/18 16:06 Urine Nitrate Negative (NEGATIVE) 10/02/18 16:06 Urine Bilirubin Negative (NEGATIVE) 10/02/18 16:06 Urine Urobilinogen 0.2-1.0 mg/dL (0.2-1.0) 10/02/18 16:06 Ur Leukocyte Esterase Neg Bora/uL (Negative) 10/02/18 16:06 Urine RBC (Auto) 625 /hpf (0-3) H 10/02/18 16:06 Urine Microscopic WBC 19 /hpf (0-5) H 10/02/18 16:06 Amorphous Sediment Rare /ul (<OCC) H 10/01/18 15:48 Urine Bacteria Occ (<OCC) H 10/02/18 16:06 Influenza Typ A,B (EIA) Negative for flu a/b (NEGATIVE) 10/01/18 12:30 - Hospital Course Hospital Course: 87 Y/O male with PMHx of Atrial Fib on Xarelto, HTN, CHF, Gouts, Knee OA, C hronic legs edema with stasis dermatitis who presented with gross hematuria. Patient also c/o persistent cough for approximately 3 weeks with production of whitish phlemg. He denied CP, SOB, nocturnal orthopnea, CATALAN, back pain, chills or fever now. Patient and family at beside endorsed that he has had chronic leg swelling, but admits that his right leg more swollen and red than usual in the last few days. Of Note patient endorses that he uses walker and wheelchair to move at home. Patient was admitted for gross hematuria, RLE cellulitis and A FIB with RVR. Patient was evaluated by urology, started on proscar and flomax and xarelto was held with resolution of the hematuria the following day after admission. Patient was evaluated by cardio due to h/o A Fib on admit with RVR and h/o chronic CHF, patient was continued on MEtoprolol 150 tid for rate control, and found CHF clinically stable at present. patient to resume xarelto once hematuria resolved. Rocephin IV tx given for RLE cellulitis with noted significant improvement. Patient clinically stable to DC home today, w/ home services, continue PO antibx for 5 more day with Omnicef. Instructed to f/u with urology and with cardiology outpatient. f/u with PMD within 1 week. Discharge Exam - Head Exam Head Exam: NORMAL INSPECTION - Eye Exam Eye Exam: EOMI - ENT Exam ENT Exam: Mucous Membranes Moist - Respiratory Exam Respiratory Exam: Clear to PA & Lateral, Prolonged Expiratory Phase - GI/Abdominal Exam GI & Abdominal Exam: Soft. absent: Tenderness - Extremities Exam Extremities exam: pedal edema Additional comments: chronic lymphedema. RLE cellulitis significantly improved, noted chronic edema back to baseline - Neurological Exam Neurological exam: Alert, Oriented x3 - Psychiatric Exam Psychiatric exam: Normal Affect - Skin Skin Exam: Warm Discharge Plan - Discharge Medications Prescriptions: Cefdinir [Omnicef] 300 mg PO Q12 #10 cap Finasteride [Proscar] 5 mg PO DAILY #30 tab Metoprolol Tartrate [Lopressor] 150 mg PO TID #180 tab Tamsulosin [Flomax] 0.4 mg PO DAILY #30 cap - Follow Up Plan Condition: FAIR Disposition: HOME/ ROUTINE Instructions: Blood in the Urine (Hematuria) in Adults, Atrial Fibrillation (DC), Cellulitis (Skin Infection), Adult (DC) Additional Instructions: Follow up with your PMD in 2 to 3 days Follow up with urologist Dr Barker in 1 to 2 weeks Follow up with cardiology in 1 to 2 weeks Continue taking your medications as prescribed ED precautions: Go to the ED if you have recurrence of blood in urine, abdoimnal pain, palpitations, chest pain, shortness of breath, fever, or any other new symptom of concern presents. Referrals: Wayne Santana MD [Staff Provider] - Ender Allison DO [Doctor Osteopathy] - Armando Barker Jr., MD [Staff Provider] - <Lamonte Barraza - Last Filed: 10/03/18 14:41> Provider - Provider Date of Admission: 10/01/18 14:11 Attending physician: Lamonte Barraza MD Consults: 10/01/18 14:19 Cardiology Consult Routine Comment: Consulting Provider: Wayne Santana V Consulting Physician: Wayne Santana V Reason for Consult: AFib with RVR, CHF 10/01/18 18:11 Urology Consult Routine Comment: Consulting Provider: Armando Barker Jr. Consulting Physician: Armando Barker Jr. Reason for Consult: gross hematuria with massively enlarged prostate 10/03/18 07:42 Nursing Referral for Wound Care Routine Comment: Physician Instructions: Reason For Exam: wound care Hospital Course - Lab Results Lab Results: Micro Results 10/01/18 12:30 Blood Blood Culture - Preliminary NO GROWTH AFTER 48 HOURS 10/02/18 16:06 Urine,Clean Catch Urine Culture - Final No Growth (<1,000 CFU/ML) 10/01/18 15:15 Urine,Clean Catch Urine Culture - Final No Growth (<1,000 CFU/ML) Most Recent Lab Values WBC 18.5 K/uL (4.8-10.8) H D 10/03/18 04:35 RBC 4.89 Mil/uL (4.40-5.90) 10/03/18 04:35 Hgb 13.9 g/dL (12.0-18.0) 10/03/18 04:35 Hct 42.9 % (35.0-51.0) 10/03/18 04:35 MCV 87.8 fl (80.0-94.0) 10/03/18 04:35 MCH 28.4 pg (27.0-31.0) 10/03/18 04:35 MCHC 32.3 g/dL (33.0-37.0) L 10/03/18 04:35 RDW 18.2 % (11.5-14.5) H 10/03/18 04:35 Plt Count 206 K/uL (130-400) 10/03/18 04:35 MPV 9.5 fl (7.2-11.7) 10/02/18 04:20 Neut % (Auto) 89.6 % (50.0-75.0) H 10/02/18 04:20 Lymph % (Auto) 9.4 % (20.0-40.0) L 10/02/18 04:20 [place] % (Auto) 1.0 % (0.0-10.0) 10/02/18 04:20 Eos % (Auto) 0.0 % (0.0-4.0) 10/02/18 04:20 Baso % (Auto) 0.0 % (0.0-2.0) 10/02/18 04:20 Neut # (Auto) 6.8 K/uL (1.8-7.0) 10/02/18 04:20 Lymph # (Auto) 0.7 K/uL (1.0-4.3) L 10/02/18 04:20 [place] # (Auto) 0.1 K/uL (0.0-0.8) 10/02/18 04:20 Eos # (Auto) 0.0 K/uL (0.0-0.7) 10/02/18 04:20 Baso # (Auto) 0.0 K/uL (0.0-0.2) 10/02/18 04:20 Neutrophils % (Manual) 84 % (42-75) H 10/02/18 04:20 Band Neutrophils % 2 % (0-2) 10/02/18 04:20 Lymphocytes % (Manual) 12 % (20-50) L 10/02/18 04:20 Reactive Lymphs % 1 % (0-0) H 10/02/18 04:20 Monocytes % (Manual) 1 % (0-10) 10/02/18 04:20 Platelet Estimate Normal (NORMAL) 10/02/18 04:20 Large Platelets Present 10/02/18 04:20 Anisocytosis (manual) Slight 10/02/18 04:20 Ovalocytes Slight 10/02/18 04:20 PT 21.4 Seconds (9.8-13.1) H 10/01/18 12:30 INR 1.9 10/01/18 12:30 APTT 34.8 Seconds (25.6-37.1) 10/01/18 12:30 pO2 50 mm/Hg (30-55) 10/01/18 14:50 VBG pH 7.49 (7.32-7.43) H 10/01/18 14:50 VBG pCO2 39 mmHg (40-60) L 10/01/18 14:50 VBG HCO3 29.3 mmol/L 10/01/18 14:50 VBG Total CO2 30.9 mmol/L (22-28) H 10/01/18 14:50 VBG O2 Sat (Calc) 91.1 % (40-65) H 10/01/18 14:50 VBG Base Excess 5.9 mmol/L (0.0-2.0) H 10/01/18 14:50 VBG Potassium 3.5 mmol/L (3.6-5.2) L 10/01/18 14:50 Sodium 135.0 mmol/L (132-148) 10/01/18 14:50 Chloride 101.0 mmol/L (98-107) 10/01/18 14:50 Glucose 138 mg/dL (75-110) H 10/01/18 14:50 Lactate 2.3 mmol/L (0.7-2.1) H 10/01/18 14:50 FiO2 21.0 % 10/01/18 14:50 Sodium 140 mmol/l (132-148) 10/03/18 04:35 Potassium 3.8 MMOL/L (3.6-5.0) 10/03/18 04:35 Chloride 104 mmol/L (98-107) 10/03/18 04:35 Carbon Dioxide 24 mmol/L (22-30) 10/03/18 04:35 Anion Gap 16 (10-20) 10/03/18 04:35 BUN 33 mg/dl (9-20) H 10/03/18 04:35 Creatinine 1.2 mg/dl (0.8-1.5) 10/03/18 04:35 Est GFR ( Amer) > 60 10/03/18 04:35 Est GFR (Non-Af Amer) 57 10/03/18 04:35 POC Glucose (mg/dL) 176 mg/dL (65-110) H 10/03/18 10:34 Random Glucose 136 mg/dL (75-110) H 10/03/18 04:35 Uric Acid 8.4 mg/Dl (3.5-8.5) 10/02/18 10:00 Calcium 8.9 mg/dL (8.4-10.2) 10/03/18 04:35 Phosphorus 3.2 mg/dl (2.5-4.5) 10/01/18 12:30 Magnesium 2.1 MG/DL (1.6-2.3) 10/01/18 12:30 Total Bilirubin 1.4 mg/dl (0.2-1.3) H 10/01/18 12:30 AST 32 U/L (17-59) 10/01/18 12:30 ALT 27 U/L (21-72) 10/01/18 12:30 Alkaline Phosphatase 143 U/L (38-126) H 10/01/18 12:30 Troponin I 0.0260 ng/mL (0.00-0.120) 10/01/18 12:30 NT-Pro-B Natriuret Pep 3730 pg/ml (0-900) H 10/01/18 12:30 Total Protein 7.9 G/DL (6.3-8.2) 10/01/18 12:30 Albumin 4.0 g/dL (3.5-5.0) 10/01/18 12:30 Globulin 4.0 gm/dL (2.2-3.9) H 10/01/18 12:30 Albumin/Globulin Ratio 1.0 (1.0-2.1) 10/01/18 12:30 Venous Blood Potassium 3.5 mmol/L (3.6-5.2) L 10/01/18 14:50 Urine Color Red (YELLOW) 10/02/18 16:06 Urine Clarity Cloudy (Clear) 10/02/18 16:06 Urine pH 6.0 (5.0-8.0) 10/02/18 16:06 Ur Specific [place] 1.008 (1.003-1.030) 10/02/18 16:06 Urine Protein 100 mg/dL (NEGATIVE) 10/02/18 16:06 Urine Glucose (UA) Neg mg/dL (NEGATIVE) 10/02/18 16:06 Urine Ketones Negative mg/dL (NEGATIVE) 10/02/18 16:06 Urine Blood Large (NEGATIVE) 10/02/18 16:06 Urine Nitrate Negative (NEGATIVE) 10/02/18 16:06 Urine Bilirubin Negative (NEGATIVE) 10/02/18 16:06 Urine Urobilinogen 0.2-1.0 mg/dL (0.2-1.0) 10/02/18 16:06 Ur Leukocyte Esterase Neg Bora/uL (Negative) 10/02/18 16:06 Urine RBC (Auto) 625 /hpf (0-3) H 10/02/18 16:06 Urine Microscopic WBC 19 /hpf (0-5) H 10/02/18 16:06 Amorphous Sediment Rare /ul (<OCC) H 10/01/18 15:48 Urine Bacteria Occ (<OCC) H 10/02/18 16:06 Influenza Typ A,B (EIA) Negative for flu a/b (NEGATIVE) 10/01/18 12:30 Attending/Attestation - Attestation I have personally seen and examined this patient.: Yes I have fully participated in the care of the patient.: Yes I have reviewed all pertinent clinical information, including history, physical exam and plan: Yes Notes (Text): 10/03/18 14:41 Patient seen and examined with resident. Case discussed and agreed with assessment. Patient discharged in stable condition.
--- NOTE | 2018-10-04 13:16 | PQF ---
PROVIDER RESPONSE TEXT: Ulcer #1: On the right meza with erythema due to chronic venous stasis/chronic leg edema, secondary t o right leg cellulitis, was treated with IV antibiotic therapy and upon discharge continue with oral antibiotic outpatient. Ulcer #2: No noted on my physical exam, an area of skin hyperpigmentation noted with skin intact. REVIEWER QUERY TEXT: Skin Ulcer Type and Severity Two (2) Skin ulcers are documented in the Medical Record by the RN in PN of 10/01/18 Ulcer #1: open blister on the right meza surrounded by erythema Ulcer #2: Left buttock stage 2 noted. Please specify the type and severity of the above ulcers Such as: Type: -- Pressure ulcer and please include the stage -- Diabetic skin ulcer -- Venous stasis ulcer -- Other, please specify Severity: -- Limited to breakdown of skin -- With fat layer exposure -- With necrosis of muscle -- With necrosis of bone -- Other, please specify The patient's Clinical Indicators include: Nursing Note: Ulcer #1: open blister on the right meza surrounded by erythema Ulcer #2: Left buttock stage 2 noted. Query created by: Lesia Burnett on 10/02/2018 1:24 PM Electronically signed by: Riya Manriquez 10/04/2018 1:12 PM
== END 2018-10-03 15:01 | disposition home or self-care (01) | DRG 726 ==
LOC: H.ER 10:26 → H.ERHOLD 14:11 → H.TEL 17:03
DX: N40.0 Benign prostatic hyperplasia without lower urinary tract symptoms (principal); I50.32 Chronic diastolic (congestive) heart failure; L03.115 Cellulitis of right lower limb; I11.0 Hypertensive heart disease with heart failure; N21.0 Calculus in bladder; I48.2 Chronic atrial fibrillation; Z79.01 Long term (current) use of anticoagulants; R31.0 Gross hematuria; E66.9 Obesity, unspecified; Z68.29 Body mass index [BMI] 29.0-29.9, adult; I27.20 Pulmonary hypertension, unspecified; I87.2 Venous insufficiency (chronic) (peripheral); M10.9 Gout, unspecified; M17.0 Bilateral primary osteoarthritis of knee; Z74.01 Bed confinement status; Z82.3 Family history of stroke; Z82.49 Family history of ischemic heart disease and other diseases of the circulatory system; Z86.718 Personal history of other venous thrombosis and embolism; Z87.891 Personal history of nicotine dependence; K64.9 Unspecified hemorrhoids; M19.90 Unspecified osteoarthritis, unspecified site; Z79.899 Other long term (current) drug therapy; I87.8 Other specified disorders of veins